=== PATIENT | male | born 1945 | race Caucasian/White ===

== ENCOUNTER 2018-08-30 13:15 | Inpatient (IN) ==
[2018-08-30 14:45] LABS: Baso % (Auto) 0.4 % (0.0-2.0); Eos % (Auto) 0.4 % (0.0-4.0); Hematocrit 48.8 % (39.0-51.0); Hemoglobin 16.3 gm/dL (13.0-17.0); Lymph # (Auto) 0.9 th/mm3 (1.0-4.8); Lymph % (Auto) 11.7 % (9.0-44.0); Mean Corpuscular HGB Conc 33.4 % (32.0-36.0); Mean Corpuscular Hemoglobin 32.2 pg (27.0-34.0); Mean Corpuscular Volume 96.6 fL (80.0-100.0); Mean Platelet Volume 7.8 fL (7.0-11.0); Mono # (Auto) 0.7 th/mm3 (0.0-0.9); Mono % (Auto) 8.1 % (0.0-8.0); Neut # (Auto) 6.4 th/mm3 (1.8-7.7); Neut % (Auto) 79.4 % (16.0-70.0); Platelet Count 244 th/mm3 (150-450); Red Blood Count 5.05 mil/mm3 (4.50-5.90); Red Cell Distribution Width 15.1 % (11.6-17.2); White Blood Count 8.1 th/mm3 (4.0-11.0)
--- NOTE | 2018-08-30 14:51 | ED ---
HPI General Chief complaint: Abdominal Pain Stated complaint: abd pain Time Seen by Provider: 08/30/18 14:13 Source: patient, family and RN notes reviewed Mode of arrival: ambulatory History of Present Illness HPI narrative: 73yM presenting with abdominal distension. The patient states that he's had abdominal "bloating" and diffuse pain for the past several weeks. He's been seen by his PMD and was sent for outpatient CT abd/ pelvis 4 days ago but does not know the results yet. He says that he feels like his abdomen needs to be drained but has never required paracentesis in the past. He was told that he had elevated liver enzymes but does not know if he has hepatitis or cirrhosis. Family history not significant for known liver disease, patient reports former alcohol use. He had an endoscopy/ colonoscopy performed by a GI in [facility] over a year ago but does not have a local GI. Related Data Home Medications Medication Instructions Recorded Confirmed amlodipine 10 mg PO DAILY 08/30/18 08/30/18 levothyroxine 25 mcg PO DAILY 08/30/18 08/30/18 lisinopril 20 mg PO DAILY 08/30/18 08/30/18 omeprazole 20 mg PO DAILY 08/30/18 08/30/18 pravastatin 40 mg PO DAILY 08/30/18 08/30/18 Allergies Allergy/AdvReac Type Severity Reaction Status Date / Time No Known Allergies Allergy Verified 08/30/18 14:07 Review of Systems ROS: all other systems reviewed are negative Constitutional Reports fever(s) Eyes Denies blurry vision Cardiovascular Denies chest pain Respiratory Denies cough Gastrointestinal Reports abdominal pain and Denies nausea Genitourinary Denies dysuria Neurologic Denies confusion Psychiatric Denies confusion PMFSH History History Provided By: Patient Medical History Medical History H/O endoscopy (Acute) Hypercholesteremia (Acute) Hypertension (Acute) Normal colonoscopy (Acute) Thyroid activity decreased (Acute) Surgical History Surgical History History of right knee joint replacement (Acute) Social History Social History Substance History: No History of Abuse Second Hand Smoke Exposure: No Smoking Status: Former smoker How Often Do You Have a Drink Containing Alcohol: 4 or more times a week Recent Travel in [facility] within the Last 8 Weeks: No Recent Out of Country Travel within the Last 8 Weeks: No Immunization History Tetanus Immunization: Unsure Hx Influenza Vaccine This Season: Yes Exam Const General: no acute distress HENMT Head: normocephalic and atraumatic Face and sinus: normal facial exam Eyes General: appearance normal, both eyes and all related structures Pupils: PERRL Other: No scleral icterus Chest Chest: normal inspection of the chest Resp Effort & Inspection: normal respiratory effort Auscultation: no rhonchi and no wheezes Cardio Rate: regular rate Rhythm: regular rhythm GI Other: Abdomen tense, moderately to severely distended, non-tender throughout, no guarding or rebound, no caput medusae Skin General: no rashes or lesions noted and no jaundice Neuro General: alert, awake, oriented x3 and no focal motor deficits Psych Affect: normal affect Procedures Paracentesis Time Out Performed: Yes Indication: Ascites Procedure: therapeutic paracentesis Location: RLQ Local anesthetic used: lidocaine 1% Amount of anesthesia used (mL): 10 Bed Used: yes, Ascites confirmed and location marked Preparation: sterile prep and drape Amount of fluid obtained (mL): 4,000 Fluid: clear and sent to lab for analysis Post Procedure Exam: awake, alert, normal BP, normal HR and normal SpO2 Patient Tolerated Procedure: well and no complications Course Initial Documented Vital Signs Temperature 97.8 F 08/30/18 13:39 Pulse Rate 105 H 08/30/18 13:39 Respiratory Rate 16 08/30/18 13:39 Blood Pressure 146/79 H 08/30/18 13:39 Pulse Oximetry 96 08/30/18 13:39 Last Documented Vital Signs Temperature 97.8 F 08/30/18 13:39 Pulse Rate 88 08/30/18 17:10 Respiratory Rate 12 08/30/18 17:10 Blood Pressure 147/83 H 08/30/18 17:10 Pulse Oximetry 96 08/30/18 17:10 Medical Decision Making [facility] Narrative Medical decision making narrative: Assessment: 73yM presenting with abdominal distension/ ascites Plan: EKG Labs, including coags, LFTs, CBC CXR Patient will need paracentesis for tense ascites Addendum: Patient's workup shows mildly elevated LFTs, no coagulopathy or thrombocytopenia, MINNA (creat 1.62, possibly related to intraabdominal HTN from tense ascites). I performed a bedside paracentesis and drained 4 L of ascitic fluid, will also give albumin bolus to follow. I informed the patient of the results of his outpatient CT scan, including concern for malignancy with possible mets. Case discussed with Dr. Last of , who will consult in the AM and recommends sending an coreen fetoprotein tumor marker and MRI abdomen. Patient will need further workup and consultation, discussed with Dr. Velazquez of [facility]. Medical Screen Exam Complete: Yes Emergency Medical Condition: Yes Differential Diagnosis Differential Diagnosis: Differential diagnosis includes, but is not limited to: ascites, cirrhosis/ liver failure, hepatorenal syndrome, coagulopathy, thrombocytopenia, mass Medical Records Medical records reviewed: Yes I reviewed the patient's medical records. CT abd/pelvis performed at [facility] on 08/26/2018: CONCLUSION: Findings of cirrhosis with severe ascites and possible mass in the dome of the liver. Malignancy is not excluded. MRI is recommended for further evaluation if clinically indicated. Multiple nodules in lung bases suspicious for metastatic disease. CT scan is recommended if clinically indicated. Possible mass in the in the L1 vertebral body. This can also be evaluated by MRI. Lab Data Lab results reviewed: Yes I reviewed the patient's lab results. Result diagrams: 08/30/18 14:30 08/30/18 14:30 Lab Results 08/30/18 08/30/18 08/30/18 Range/Units 14:30 14:30 14:30 WBC 8.1 (4.0-11.0) th/mm3 RBC 5.05 (4.50-5.90) mil/mm3 Hgb 16.3 (13.0-17.0) gm/dL Hct 48.8 (39.0-51.0) % MCV 96.6 (80.0-100.0) fL MCH 32.2 (27.0-34.0) pg MCHC 33.4 (32.0-36.0) % RDW 15.1 (11.6-17.2) % Plt Count 244 (150-450) th/mm3 MPV 7.8 (7.0-11.0) fL Neut % (Auto) 79.4 H (16.0-70.0) % Lymph % (Auto) 11.7 (9.0-44.0) % [place] % (Auto) 8.1 H (0.0-8.0) % Eos % (Auto) 0.4 (0.0-4.0) % Baso % (Auto) 0.4 (0.0-2.0) % Neut # (Auto) 6.4 (1.8-7.7) th/mm3 Lymph # (Auto) 0.9 L (1.0-4.8) th/mm3 [place] # (Auto) 0.7 (0.0-0.9) th/mm3 Eos # (Auto) 0.0 (0.0-0.4) th/mm3 Baso # (Auto) 0.0 (0.0-0.2) th/mm3 WBC Differential . Differential Comment Auto diff final PT 11.9 H (9.8-11.6) sec INR 1.2 Ratio APTT 32.8 H (24.3-30.1) sec Sodium 132 L (136-145) meq/L Potassium 4.4 (3.5-5.1) meq/L Chloride 99 (98-107) meq/L Carbon Dioxide 22.2 (21.0-32.0) meq/L Anion Gap 11 (5-15) meq/L BUN 41 H (7-18) mg/dL Creatinine 1.62 H (0.60-1.30) mg/dL Estimated GFR 42 L (>89) mL/min Random Glucose 116 H (74-106) mg/dL Calcium 10.0 (8.5-10.1) mg/dL Total Bilirubin 1.8 H (0.2-1.0) mg/dL AST 264 H (15-37) U/L ALT 83 H (12-78) U/L Alkaline Phosphatase 485 H (45-117) U/L Ammonia (11-32) mcmol/L Total Protein 7.8 (6.4-8.2) g/dL Albumin 3.2 L (3.4-5.0) g/dL Lipase 273 (73-393) U/L Blood Type Antibody Screen 08/30/18 08/30/18 Range/Units 14:30 14:30 WBC (4.0-11.0) th/mm3 RBC (4.50-5.90) mil/mm3 Hgb (13.0-17.0) gm/dL Hct (39.0-51.0) % MCV (80.0-100.0) fL MCH (27.0-34.0) pg MCHC (32.0-36.0) % RDW (11.6-17.2) % Plt Count (150-450) th/mm3 MPV (7.0-11.0) fL Neut % (Auto) (16.0-70.0) % Lymph % (Auto) (9.0-44.0) % [place] % (Auto) (0.0-8.0) % Eos % (Auto) (0.0-4.0) % Baso % (Auto) (0.0-2.0) % Neut # (Auto) (1.8-7.7) th/mm3 Lymph # (Auto) (1.0-4.8) th/mm3 [place] # (Auto) (0.0-0.9) th/mm3 Eos # (Auto) (0.0-0.4) th/mm3 Baso # (Auto) (0.0-0.2) th/mm3 WBC Differential Differential Comment PT (9.8-11.6) sec INR Ratio APTT (24.3-30.1) sec Sodium (136-145) meq/L Potassium (3.5-5.1) meq/L Chloride (98-107) meq/L Carbon Dioxide (21.0-32.0) meq/L Anion Gap (5-15) meq/L BUN (7-18) mg/dL Creatinine (0.60-1.30) mg/dL Estimated GFR (>89) mL/min Random Glucose (74-106) mg/dL Calcium (8.5-10.1) mg/dL Total Bilirubin (0.2-1.0) mg/dL AST (15-37) U/L ALT (12-78) U/L Alkaline Phosphatase (45-117) U/L Ammonia Less than 10 L (11-32) mcmol/L Total Protein (6.4-8.2) g/dL Albumin (3.4-5.0) g/dL Lipase (73-393) U/L Blood Type A Positive Antibody Screen Negative Imaging Data Radiologist's impression: Chest X-Ray 08/30/18 14:23 CONCLUSION: No acute cardiopulmonary findings. ECG Data Attestation: I personally reviewed and interpreted this ECG as follows: Interpretation: Rate: 95 BPM Rhythm: Sinus [place]: Normal Intervals: Normal intervals, no blocks, QTc 400 ms Q waves: None T waves: Upright, no inversions ST segments: No elevations or depressions Impression: Non-specific EKG, no previous EKG available for comparison. Discharge Plan Discharge Disposition Patient Disposition: 30 Still Patient Discharge Condition Condition: Stable Discharge Details Diagnosis: Ascites, Liver mass, Acute kidney injury Physicians Team ED Provider: Bonnie Aguilar Primary Care Provider: Lynn Goff Other Providers: Evaristo Last Rxs /Orders / Referrals /Forms Prescriptions: No Action pravastatin 40 mg Tablet 40 mg PO DAILY RF: 0 lisinopril 20 mg Tablet 20 mg PO DAILY RF: 0 levothyroxine 25 mcg Tablet 25 mcg PO DAILY RF: 0 amlodipine 10 mg Tablet 10 mg PO DAILY RF: 0 omeprazole 20 mg Capsule,Delayed Release(Dr/Ec) 20 mg PO DAILY RF: 0 Discharge Interventions Interventions: Vital Signs Last Done: 08/30/18 17:10 Status ED Status: With Doctor
[2018-08-30 14:58] LABS: Activated Partial Thrombo Time 32.8 sec (24.3-30.1); INR 1.2 Ratio; Prothrombin Time 11.9 sec (9.8-11.6)
[2018-08-30 15:06] LABS: Alanine Aminotransferase 83 U/L (12-78); Albumin 3.2 g/dL (3.4-5.0); Anion Gap 11 meq/L (5-15); Aspartate Aminotransferase 264 U/L (15-37); Blood Urea Nitrogen 41 mg/dL (7-18); Carbon Dioxide 22.2 meq/L (21.0-32.0); Chloride 99 meq/L (98-107); Glomerular Filtration Rate 42 mL/min (>89); Glucose,Random 116 mg/dL (74-106); Lipase 273 U/L (73-393); Potassium 4.4 meq/L (3.5-5.1); Sodium 132 meq/L (136-145)
[2018-08-30 15:09] LABS: Alkaline Phosphatase 485 U/L (45-117); Total Protein 7.8 g/dL (6.4-8.2)
--- NOTE | 2018-08-30 15:22 | XR ---
EXAM DATE: 08/30/2018 2:23 PM EDT AGE/SEX: 73 years / Male INDICATIONS: Atelectasis. Abdomen pain and swelling for 3 weeks. No chest pain. Abdomen pain 6/10. CLINICAL DATA: This is the patient's initial encounter. Patient reports that signs and symptoms have been present for 3 weeks and indicates a pain score of 0/10. MEDICAL/SURGICAL HISTORY: None. None. COMPARISON: No prior exams available for comparison. FINDINGS: The heart is normal in size. The lungs are clear. The visualized bony structures are grossly intact. CONCLUSION: No acute cardiopulmonary findings. Electronically signed by: Hardeep Posey MD 08/30/2018 3:20 PM EDT
[2018-08-30] MEDS ORDERED: Lidocaine PF 1% Inj 10 ML Amp INFILTRATN ONE (16:28)
[2018-08-30] MEDS ORDERED: Albumin Human 5% Inj 500 ML IV.SIG ONE (17:03)
[2018-08-30] MEDS ORDERED: Bisacodyl 10 MG Supp RECTAL PRN (17:55)
[2018-08-30] MEDS ORDERED: Sod Chloride 0.9% Inj 1,000 ML IV.CONT SCH (18:00)
[2018-08-30 18:24] LABS: Total Protein,Peritoneal Fluid 0.4 gm/dL
--- NOTE | 2018-08-30 18:36 | P.HP ---
History of Present Illness Service: Hospitalist Primary Care Physician: Lynn Goff MD Chief Complaint: Abdominal distention History of Present Illness: Patient is a 73-year-old male who has a past medical history of hypertension, hyperlipidemia, BPH, hypothyroidism and liver disease. He presents to the emergency room with a complaint of abdominal distention. His history is somewhat vague however he does say that he has recently seen an oncologist, Dr. Garcia, who did a CT last week in order to evaluate his liver for a possible lesion and cirrhosis. Patient also reports that he was told his blood work was showing high calcium and liver problems. He does endorse significant EtOH use in the past. He quit smoking in his 30s. Denies any history of liver disease such as hepatitis or any previous paracentesis. He does report having had an EGD and colonoscopy however it is unclear exactly when this was done. - Diagnosis (1) Weakness (2) Ascites (3) Liver mass (4) Acute kidney injury Review of Systems All other systems reviewed negative except as stated in HPI [facility] - History History Provided By: Patient, Medical Record - Medical History Medical History: Medical History (Last Reviewed 08/30/18 @ 18:04 by MELVIN Velasquez) BPH (benign prostatic hyperplasia) H/O endoscopy Hypercholesteremia Hypertension Normal colonoscopy Thyroid activity decreased - Surgical History Surgical History: Surgical History (Last Reviewed 08/30/18 @ 18:04 by MELVIN Velasquez) H/O hemorrhoidectomy History of right knee joint replacement - Family History Family History: Family History (Last Reviewed 08/30/18 @ 18:04 by MELVIN Velasquez) Other Family history non-contributory - Social History I have reviewed the patient's Social History: Yes - Tobacco History Second Hand Smoke Exposure: No Tobacco Use In Past 30 Days: No Smoking Status: Former smoker - Alcohol History How Often Do You Have a Drink Containing Alcohol: 4 or more times a week - Substance Use History Substance History: No History of Abuse - Travel History Recent Travel in the [place] Within the Last 8 Weeks: No Recent Travel Out of the Country Within the Last 8 Weeks: No - Immunization History Tetanus Immunization: Unsure Hx Influenza Vaccine This Season: Yes Medications and Allergies Active Medications: Active Medications Al Hydroxide/Mg Hydroxide (Milk Of Magnesia Liq) 30 ml PO Q12H PRN PRN Reason: Mild Constipation Bisacodyl (Dulcolax Supp) 10 mg RECTAL DAILY PRN PRN Reason: SEVERE CONSITIPATION Albumin Human (Alburx 5% Inj) 500 mls @ 250 mls/hr IV.SIG ONCE ONE Stop: 08/30/18 19:02 Last Admin: 08/30/18 17:52 Dose: 250 mls/hr Sodium Chloride (Ns Inj) 1,000 mls @ 50 mls/hr IV.CONT .Q20H ASHWINI Stop: 08/31/18 13:59 Lactulose (Lactulose Liq) 30 ml PO DAILY PRN PRN Reason: SEVERE CONSITIPATION Ondansetron HCl (Zofran Inj) 4 mg IV.PUSH Q6H PRN PRN Reason: NAUSEA OR VOMITING Senna/Docusate Sodium (Migdalia-Colace) 1 tab PO BID ASHWINI Sennosides (Senokot) 17.2 mg PO Q12H PRN PRN Reason: Moderate Constipation Sodium Chloride (Ns Flush) 2 ml IV.FLUSH PRN PRN PRN Reason: FLUSH AFTER USING IV ACCESS Allergies Allergy/AdvReac Type Severity Reaction Status Date / Time No Known Allergies Allergy Verified 08/30/18 14:07 Home Medications Medication Instructions Recorded Confirmed Type amlodipine 10 mg PO DAILY 08/30/18 08/30/18 History levothyroxine 25 mcg PO DAILY 08/30/18 08/30/18 History lisinopril 20 mg PO DAILY 08/30/18 08/30/18 History omeprazole 20 mg PO DAILY 08/30/18 08/30/18 History pravastatin 40 mg PO DAILY 08/30/18 08/30/18 History Exam Vital signs: Vital Signs 08/30/18 13:39 08/30/18 13:52 08/30/18 16:45 Temperature 97.8 F Pulse Rate 105 H 95 H 90 Respiratory Rate 16 20 12 Blood Pressure 146/79 H 116/56 L 153/90 H Pulse Oximetry 96 94 L 90 L 08/30/18 17:10 08/30/18 17:51 Temperature Pulse Rate 88 82 Respiratory Rate 12 12 Blood Pressure 147/83 H 141/69 H Pulse Oximetry 96 Intake & Output 08/29/18 08/30/18 08/30/18 18:59 06:59 18:59 Weight 68.039 kg Other: Date of Last Bowel Movement 08/30/18 Narrative: GENERAL: Well-nourished, well-developed adult male in no obvious distress. SKIN: Warm and dry. HEAD: Atraumatic. Normocephalic. CARDIOVASCULAR: Regular rate and rhythm. RESPIRATORY: No accessory muscle use. Clear to auscultation. Breath sounds equal bilaterally. GASTROINTESTINAL: Abdomen soft, non-tender, quite distended. Positive bowel sounds. MUSCULOSKELETAL: Extremities without clubbing, cyanosis, or edema. No obvious deformities. Generalized muscle loss. NEUROLOGICAL: Awake and alert. No obvious cranial nerve deficits. Motor grossly within normal limits. Normal speech. PSYCHIATRIC: Appropriate mood and affect; insight and judgment good. Results - Labs CBC & Chem 7: 08/30/18 14:30 08/30/18 14:30 Labs: Laboratory Results - last 24 hr 08/30/18 08/30/18 08/30/18 14:30 14:30 14:30 WBC 8.1 RBC 5.05 Hgb 16.3 Hct 48.8 MCV 96.6 MCH 32.2 MCHC 33.4 RDW 15.1 Plt Count 244 MPV 7.8 Neut % (Auto) 79.4 H Lymph % (Auto) 11.7 [place] % (Auto) 8.1 H Eos % (Auto) 0.4 Baso % (Auto) 0.4 Neut # (Auto) 6.4 Lymph # (Auto) 0.9 L [place] # (Auto) 0.7 Eos # (Auto) 0.0 Baso # (Auto) 0.0 WBC Differential . Differential Comment Auto diff final PT 11.9 H INR 1.2 APTT 32.8 H Sodium 132 L Potassium 4.4 Chloride 99 Carbon Dioxide 22.2 Anion Gap 11 BUN 41 H Creatinine 1.62 H Estimated GFR 42 L Random Glucose 116 H Calcium 10.0 Total Bilirubin 1.8 H AST 264 H ALT 83 H Alkaline Phosphatase 485 H Ammonia Total Protein 7.8 Albumin 3.2 L Lipase 273 Blood Type Antibody Screen 08/30/18 08/30/18 14:30 14:30 WBC RBC Hgb Hct MCV MCH MCHC RDW Plt Count MPV Neut % (Auto) Lymph % (Auto) [place] % (Auto) Eos % (Auto) Baso % (Auto) Neut # (Auto) Lymph # (Auto) [place] # (Auto) Eos # (Auto) Baso # (Auto) WBC Differential Differential Comment PT INR APTT Sodium Potassium Chloride Carbon Dioxide Anion Gap BUN Creatinine Estimated GFR Random Glucose Calcium Total Bilirubin AST ALT Alkaline Phosphatase Ammonia Less than 10 L Total Protein Albumin Lipase Blood Type A Positive Antibody Screen Negative - Imaging Impressions Chest X-Ray 08/30/18 14:23 CONCLUSION: No acute cardiopulmonary findings. Caprini VTE Risk Assessment Caprini VTE Risk Assessment: No/Low Risk (score <= 1) Caprini Risk Assessment Model: Point Value = 1 Point Value = 2 Point Value = 3 Point Value = 5 Age 41-60 Minor surgery BMI > 25 kg/m2 Swollen legs Varicose veins or History of unexplained or recurrent spontaneous Oral contraceptives or hormone replacement Sepsis (< 1 month) Serious lung disease, including pneumonia (< 1 month) Abnormal pulmonary function Acute myocardial infarction Congestive heart failure (< 1 month) History of inflammatory bowel disease Medical patient at bed rest Age 61-74 Arthroscopic surgery Major open surgery (> 45 min) Laparoscopic surgery (> 45 min) Malignancy Confined to bed (> 72 hours) Immobilizing plaster cast Central venous access Age >= 75 History of VTE Family history of VTE Factor V Leiden Prothrombin [id number] Lupus anticoagulant Anticardiolipin antibodies Elevated serum homocysteine Heparin-induced thrombocytopenia Other congenital or acquired thrombophilia Stroke (< 1 month) Elective arthroplasty Hip, pelvis, or leg fracture Acute spinal cord injury (< 1 month) Prophylaxis Regimen: Total Risk Factor Score Risk Level Prophylaxis Regimen 0-1 Low Early ambulation 2 Moderate Order ONE of the following: *Sequential Compression Device (SCD) *Heparin 5000 units SQ BID 3-4 Higher Order ONE of the following medications: *Heparin 5000 units SQ TID *Enoxaparin/Lovenox 40 mg SQ daily (WT < 150 kg, CrCl > 30 mL/min) *Enoxaparin/Lovenox 30 mg SQ daily (WT < 150 kg, CrCl > 10-29 mL/min) *Enoxaparin/Lovenox 30 mg SQ BID (WT < 150 kg, CrCl > 30 mL/min) AND/OR *Sequential Compression Device (SCD) 5 or more Highest Order ONE of the following medications: *Heparin 5000 units SQ TID (Preferred with Epidurals) *Enoxaparin/Lovenox 40 mg SQ daily (WT < 150 kg, CrCl > 30 mL/min) *Enoxaparin/Lovenox 30 mg SQ daily (WT < 150 kg, CrCl > 10-29 mL/min) *Enoxaparin/Lovenox 30 mg SQ BID (WT < 150 kg, CrCl > 30 mL/min) AND *Sequential Compression Device (SCD) Assessment and Plan - Assessment (1) Weakness Code(s): R53.1 - Weakness Status: Acute (2) Ascites Code(s): R18.8 - Other ascites Status: Acute (3) Liver mass Code(s): R16.0 - Hepatomegaly, not elsewhere classified Status: Acute (4) Acute kidney injury Code(s): N17.9 - Acute kidney failure, unspecified Status: Acute - Plan Patient is a 73-year-old male who has a past medical history of hypertension, hyperlipidemia, BPH, hypothyroidism and liver disease. He presents to the emergency room with a complaint of abdominal distention. Per emergency room physician -outpatient CT AB pelvis done 4 days ago indicated possible mass in the dome of the liver for which malignancy could not be excluded. There was also nodules in the lung bases suspicious for metastatic disease as well as a possible mass in the L1 vertebral body.. Ascites -Paracentesis done in the ED -4 L removed -Hold off on starting spironolactone/Lasix until kidney function has improved -GI consulted Suspected liver CA with possible metastases -MRI ordered for additional evaluation -Dr. Garcia is outpatient oncologist Acute kidney injury -Gentle IVF hydration -Monitor labs -Hold lisinopril Weakness -Debilitated due to liver disease and chronic EtOH use -PT ordered Hypertension; chronic -Restart patient Norvasc -Hold lisinopril due to MINNA Hypothyroid; chronic -Restart patient levothyroxine Hyperlipidemia; chronic -Hold simvastatin due to muscle weakness and until liver evaluation is complete DVT prophylaxis: SCDs.
[2018-08-30 18:43] LABS: Bacteria,Urine Occasional /hpf; Bilirubin,Urine Negative (Negative); Clarity,Urine Hazy (Clear); Color,Urine Amber (Yellw/Straw); Glucose,Urine (UA) Negative (Negative); Hyaline Casts,Urine 19 /lpf (0-3); Leukocyte Esterase,Urine Trace (Negative); Mucus,Urine Few /lpf (Occasional); Nitrite,Urine Negative (Negative); Specific Gravity,Urine 1.025 (1.002-1.035); Squamous Epithelial Cell,Urine <1 /hpf (0-5)
[2018-08-30 18:52] LABS: Basophils,Peritoneal Fluid 1 %; Mesothelial,Peritoneal Fluid 2 %; Neutrophils,Peritoneal Fluid 37 %; RBC,Peritoneal Fluid 359 /mm3 (0-0)
--- NOTE | 2018-08-30 21:11 | MR ---
EXAM DATE: 08/30/2018 8:05 PM EDT AGE/SEX: 73 years / Male INDICATIONS: Abnormal abdomen CT demonstrating low-attenuation areas in the dome of the liver of conc brenda for possible mass. Multiple nodules in the lung bases seen on CT of concern for metastatic diseas e. A small mass in the L1 vertebral body. Ascites and cirrhosis. A small right pleural effusion is in cidentally noted. CLINICAL DATA: This is the patient's initial encounter. Patient reports that signs and symptoms have been present for 1 day and indicates a pain score of 0/10. MEDICAL/SURGICAL HISTORY: Hypertension. . Right knee replacement. COMPARISON: POI, CT ABDOMEN AND PELVIS W AND W/O CONTRAST, 08/26/2018. . TECHNIQUE: Multiplanar, multisequence images of the abdomen was performed without contrast. FINDINGS: Liver: The liver is again noted to be small and cirrhotic in appearance with subtle areas of abnormal signal noted in the dome of the liver which are nonmasslike in appearance on this this noncontrast s tudy. There is mild heterogeneity and no intrahepatic ductal dilatation. There is evidence of portal venous thrombosis with abnormal signal in the central portal vein. Gallbladder: No gallstones seen. Spleen: The spleen is unremarkable. Pancreas: The pancreas is unremarkable. Adrenals: The adrenal glands appear normal. Kidneys: Both kidneys appear normal with symmetric nephrograms and no focal parenchymal abnormalities . There is no hydronephrosis on either side. Retroperitoneum: The aorta is unremarkable. There is no pathologic abdominal lymphadenopathy. High signal mass in the right side of the L1 vertebral body on the T2-weighted coronal images. Please see lumbar spine MRI for further evaluation. CONCLUSION: 1. Evidence of central portal venous thrombosis. 2. Noncontrast examination demonstrating a cirrhotic liver with inhomogeneity and abnormal signal in tensity in the right lobe corresponding to the areas of low density seen on CT. The finding is nonspe cific but may be related to the portal venous thrombosis. A contrast-enhanced study would have increa sed sensitivity to exclude the possibility of a true mass. 3. Moderate amount of ascitic fluid. 4. Small right pleural effusion. 5. High signal mass in the right-sided the L1 body on the T2-weighted images. Please see lumbar spin e MRI for further evaluation. Electronically signed by: Trey Campbell MD 08/30/2018 9:10 PM EDT
--- NOTE | 2018-08-30 21:20 | MR ---
EXAM DATE: 08/30/2018 8:05 PM EDT AGE/SEX: 73 years / Male INDICATIONS: Abnormal abdomen CT demonstrating a focal mass in the L1 vertebral body. Low back pain. Also had multiple pulmonary masses. CLINICAL DATA: This is the patient's initial encounter. Patient reports that signs and symptoms have been present for 1 day and indicates a pain score of 4/10. MEDICAL/SURGICAL HISTORY: Hypertension. Total knee replacement, right. COMPARISON: No prior exams available for comparison. TECHNIQUE: Multiplanar, multisequence MRI of the lumbar spine was performed without contrast. Patie nt was scanned in a sitting position; neutral, flexion, and extension scans were performed in the sa gittal plane. FINDINGS: Vertebra: The vertebral bodies are intact with fairly homogeneous signal except for a focal mass in the right side of the L1 vertebral body measuring up to 2.5 cm in diameter. This demonstrates high si gnal on the T2-weighted images and low signal on the T1-weighted images. It is a second high signal m ass noted in the right ilium on axial image #21.. Normal alignment. Discs: There is disc desiccation. There are small anterior extradural defects noted on the sagittal i mages greatest at the L4-5 and L5-S1 levels. Conus: Normal level and configuration. T12-L1: The thecal sac has a normal diameter. No evidence of disc bulge or protrusion. The neural foramina are patent bilaterally. High signal mass is again noted in the right side of the L1 vertebra l body. L1-L2: There is a mild annular disc bulge with mild flattening of the anterior thecal sac and no fo shanice protrusion. The neural foramina are patent. L2-L3: There is a mild annular disc bulge with mild flattening of the anterior thecal sac and no fo shanice protrusion. The neural foramina are patent. L3-L4: There is a mild annular disc bulge with mild flattening of the anterior thecal sac and no fo shanice protrusion. The neural foramina are patent. There are mild degenerative change involving the face t joints. L4-L5: There is a mild annular disc bulge with mild flattening of the anterior thecal sac and no fo shanice protrusion. The neural foramina are patent. There are mild degenerative change involving the face t joints. There is a subtle high signal mass in the left side of the L4 vertebral body measuring 6 to 7 mm. L5-S1: Mild annular disc bulge with no mass effect on the thecal sac. The neural foramina are paten t. There are degenerative changes involving the facet joints. CONCLUSION: 1. 2.5 cm mass in the right side of the L1 vertebral body with high signal on the T2-weighted images and subtle decreased signal on the T1-weighted images. There is a smaller 8 to 9 mm similar appearin g mass in the right side of the ileum. There is a third subtle high signal mass also noted in the L4 vertebral body. Findings are nonspecific but of concern for marrow replacing process such as a metast asis or myeloma. 2. Mild degenerative disc changes with disc bulges and no focal protrusion. Electronically signed by: Trey Campbell MD 08/30/2018 9:19 PM EDT
[2018-08-30] MEDS: Senna/Docusate Sodium 8.6/50 MG Tablet PO SCH (22:00)
[2018-08-31 07:12] LABS: Alanine Aminotransferase 57 U/L (12-78); Albumin 2.8 g/dL (3.4-5.0); Alkaline Phosphatase 340 U/L (45-117); Anion Gap 11 meq/L (5-15); Aspartate Aminotransferase 216 U/L (15-37); Blood Urea Nitrogen 40 mg/dL (7-18); Calcium 9.3 mg/dL (8.5-10.1); Carbon Dioxide 18.4 meq/L (21.0-32.0); Chloride 101 meq/L (98-107); Creatine Kinase 137 U/L (39-308); Glomerular Filtration Rate 58 mL/min (>89); Glucose,Random 78 mg/dL (74-106); Potassium 5.7 meq/L (3.5-5.1); Sodium 130 meq/L (136-145); Total Protein 6.6 g/dL (6.4-8.2)
[2018-08-31] MEDS ORDERED: Sodium Polystyrene Sulfonate/Sorbitol Liq 15 GM/60 ML UDC PO ONE (08:00)
[2018-08-31] MEDS ORDERED: amLODIPine 10 MG Tablet PO SCH (09:00)
[2018-08-31] MEDS: Pantoprazole Sodium 20 MG DR Tablet PO SCH (09:31)
[2018-08-31] MEDS: Senna/Docusate Sodium 8.6/50 MG Tablet PO SCH ×2 (09:32→21:07)
--- NOTE | 2018-08-31 11:07 | P.PNIM ---
Subjective Interval history: Follow-up ascites, liver mass, MINNA. Pt sitting in the bed, just came back from therapy activity. Patient denies any abdominal pain, nausea or vomiting. Patient complaints of being hungry , wants water and food. Explained the need to be NPO for GI procedure today. Patient stated ascites started 2-3 weeks ago. Also confirmed he had stopped drinking recently. Patient denies any headache, dizziness, denies any chest pain or shortness of breath, denies any diarrhea or constipation. Patient denies any fever or chills. Physical Exam Vital signs: Vital Signs 08/30/18 13:39 08/30/18 13:52 08/30/18 16:45 Temperature 97.8 F Pulse Rate 105 H 95 H 90 Respiratory Rate 16 20 12 Blood Pressure 146/79 H 116/56 L 153/90 H Pulse Oximetry 96 94 L 90 L 08/30/18 17:10 08/30/18 17:51 08/30/18 18:00 Temperature Pulse Rate 88 82 73 Respiratory Rate 12 12 12 Blood Pressure 147/83 H 141/69 H 151/79 H Pulse Oximetry 96 95 08/30/18 20:00 08/31/18 00:00 08/31/18 04:00 Temperature 97.4 F L 99 F 98 F Pulse Rate 69 70 75 Respiratory Rate 15 18 17 Blood Pressure 139/69 132/70 150/82 H Pulse Oximetry 95 97 94 L 08/31/18 08:00 Temperature 98.0 F Pulse Rate 65 Respiratory Rate 18 Blood Pressure 134/86 Pulse Oximetry 93 L Intake & Output 08/30/18 08/31/18 08/31/18 18:59 06:59 18:59 Intake Total 500 / 500 Balance 500 / 500 Weight 68.039 kg 84.7 kg Intake: IV 500 / 500 Alburx 5% Inj 500 ML @ 250 mls/ 500 / 500 hr IV.SIG ONCE ONE Rx#:[id number] Other: # Voids 3 Date of Last Bowel Movement 08/30/18 08/31/18 # Bowel Movements 2 Weight On Admission 84.7 kg Narrative: GENERAL: Well-developed, well-nourished, alert and oriented x3, with no apparent distress SKIN: Warm and dry. HEAD: Atraumatic. Normocephalic. EYES: Pupils equal and round. No scleral icterus. No injection or drainage. ENT: No nasal bleeding or discharge. Mucous membranes pink and moist. NECK: Trachea midline. No JVD. CARDIOVASCULAR: Regular rate and rhythm. RESPIRATORY: No accessory muscle use. Clear to auscultation. Breath sounds equal bilaterally. GASTROINTESTINAL: Abdomen distended, non-tender. Bowel sounds present in all 4 quadrants. MUSCULOSKELETAL: Extremities without clubbing, cyanosis, or edema. No obvious deformities. NEUROLOGICAL: Awake and alert. No obvious cranial nerve deficits. Motor grossly within normal limits. Five out of 5 muscle strength in the arms and legs. Normal speech. PSYCHIATRIC: Appropriate mood and affect; insight and judgment normal. Results - Labs CBC & Chem 7: 08/30/18 14:30 08/31/18 05:00 Laboratory Results - last 24 hr 08/30/18 08/30/18 08/30/18 14:30 14:30 14:30 WBC 8.1 RBC 5.05 Hgb 16.3 Hct 48.8 MCV 96.6 MCH 32.2 MCHC 33.4 RDW 15.1 Plt Count 244 MPV 7.8 Neut % (Auto) 79.4 H Lymph % (Auto) 11.7 Hamlin % (Auto) 8.1 H Eos % (Auto) 0.4 Baso % (Auto) 0.4 Neut # (Auto) 6.4 Lymph # (Auto) 0.9 L [place]lin # (Auto) 0.7 Eos # (Auto) 0.0 Baso # (Auto) 0.0 WBC Differential . Differential Comment Auto diff final PT 11.9 H INR 1.2 APTT 32.8 H Sodium 132 L Potassium 4.4 Chloride 99 Carbon Dioxide 22.2 Anion Gap 11 BUN 41 H Creatinine 1.62 H Estimated GFR 42 L Random Glucose 116 H Calcium 10.0 Total Bilirubin 1.8 H AST 264 H ALT 83 H Alkaline Phosphatase 485 H Ammonia Total Creatine Kinase Total Protein 7.8 Albumin 3.2 L Lipase 273 Tumor Marker AFP Urine Color Urine Clarity Urine pH Ur Specific [place] Urine Protein Urine Glucose (UA) Urine Ketones Urine Occult Blood Urine Nitrate Urine Bilirubin Urine Urobilinogen Ur Leukocyte Esterase Urine RBC Urine WBC Ur Squamous Epith Cells Urine Bacteria Hyaline Casts Urine Mucus Micro UA Comment Ur Microscopic Review Urine Culture Comments Peritoneal RBC Periton Nuc Cells Periton Neutrophils Periton Lymphocytes Peritoneal Monocytes Peritoneal Basophils Periton Mesothelial Periton Histiocytes Peritoneal Tot Protein Peritoneal Albumin Peritoneal LDH Peritoneal Glucose Peritoneal Amylase Blood Type Antibody Screen 08/30/18 08/30/18 08/30/18 14:30 14:30 17:15 WBC RBC Hgb Hct MCV MCH MCHC RDW Plt Count MPV Neut % (Auto) Lymph % (Auto) Hamlin % (Auto) Eos % (Auto) Baso % (Auto) Neut # (Auto) Lymph # (Auto) Hamlin # (Auto) Eos # (Auto) Baso # (Auto) WBC Differential Differential Comment PT INR APTT Sodium Potassium Chloride Carbon Dioxide Anion Gap BUN Creatinine Estimated GFR Random Glucose Calcium Total Bilirubin AST ALT Alkaline Phosphatase Ammonia Less than 10 L Total Creatine Kinase Total Protein Albumin Lipase Tumor Marker AFP Urine Color Urine Clarity Urine pH Ur Specific [place] Urine Protein Urine Glucose (UA) Urine Ketones Urine Occult Blood Urine Nitrate Urine Bilirubin Urine Urobilinogen Ur Leukocyte Esterase Urine RBC Urine WBC Ur Squamous Epith Cells Urine Bacteria Hyaline Casts Urine Mucus Micro UA Comment Ur Microscopic Review Urine Culture Comments Peritoneal RBC Periton Nuc Cells Periton Neutrophils Periton Lymphocytes Peritoneal Monocytes Peritoneal Basophils Periton Mesothelial Periton Histiocytes Peritoneal Tot Protein 0.4 Peritoneal Albumin 0.2 Peritoneal LDH 30 Peritoneal Glucose 114 Peritoneal Amylase 7 Blood Type A Positive Antibody Screen Negative 08/30/18 08/30/18 08/30/18 17:15 17:37 18:10 WBC RBC Hgb Hct MCV MCH MCHC RDW Plt Count MPV Neut % (Auto) Lymph % (Auto) [place] % (Auto) Eos % (Auto) Baso % (Auto) Neut # (Auto) Lymph # (Auto) Hamlin # (Auto) Eos # (Auto) Baso # (Auto) WBC Differential Differential Comment PT INR APTT Sodium Potassium Chloride Carbon Dioxide Anion Gap BUN Creatinine Estimated GFR Random Glucose Calcium Total Bilirubin AST ALT Alkaline Phosphatase Ammonia Total Creatine Kinase Total Protein Albumin Lipase Tumor Marker AFP 3906.2 H Urine Color Ila Urine Clarity Hazy H Urine pH 5.0 Ur Specific [place] 1.025 Urine Protein 30 H Urine Glucose (UA) Negative Urine Ketones Negative Urine Occult Blood Small H Urine Nitrate Negative Urine Bilirubin Negative Urine Urobilinogen Less than 2 Ur Leukocyte Esterase Trace H Urine RBC 2 Urine WBC 8 H Ur Squamous Epith Cells <1 Urine Bacteria Occasional H Hyaline Casts 19 Urine Mucus Few H Micro UA Comment Culture not ind Ur Microscopic Review Not Reportable Urine Culture Comments Culture not ind Peritoneal RBC 359 H Periton Nuc Cells 147 H [place] Neutrophils 37 [place] Lymphocytes 50 Peritoneal Monocytes 9 Peritoneal Basophils 1 [place] Mesothelial 2 Periton Histiocytes 1 Peritoneal Tot Protein Peritoneal Albumin Peritoneal LDH Peritoneal Glucose Peritoneal Amylase Blood Type Antibody Screen 08/31/18 05:00 WBC RBC Hgb Hct MCV MCH MCHC RDW Plt Count MPV Neut % (Auto) Lymph % (Auto) [place]lin % (Auto) Eos % (Auto) Baso % (Auto) Neut # (Auto) Lymph # (Auto) [place]lin # (Auto) Eos # (Auto) Baso # (Auto) WBC Differential Differential Comment PT INR APTT Sodium 130 L Potassium 5.7 H D Chloride 101 Carbon Dioxide 18.4 L Anion Gap 11 BUN 40 H Creatinine 1.21 Estimated GFR 58 L Random Glucose 78 Calcium 9.3 Total Bilirubin 2.1 H AST 216 H ALT 57 Alkaline Phosphatase 340 H Ammonia Total Creatine Kinase 137 Total Protein 6.6 D Albumin 2.8 L Lipase Tumor Marker AFP Urine Color Urine Clarity Urine pH Ur Specific [place] Urine Protein Urine Glucose (UA) Urine Ketones Urine Occult Blood Urine Nitrate Urine Bilirubin Urine Urobilinogen Ur Leukocyte Esterase Urine RBC Urine WBC Ur Squamous Epith Cells Urine Bacteria Hyaline Casts Urine Mucus Micro UA Comment Ur Microscopic Review Urine Culture Comments Peritoneal RBC Periton Nuc Cells Periton Neutrophils Periton Lymphocytes Peritoneal Monocytes Peritoneal Basophils Periton Mesothelial Periton Histiocytes Peritoneal Tot Protein Peritoneal Albumin Peritoneal LDH Peritoneal Glucose Peritoneal Amylase Blood Type Antibody Screen - Imaging Impressions Abdomen MRI 08/30/18 00:00 CONCLUSION: 1. Evidence of central portal venous thrombosis. 2. Noncontrast examination demonstrating a cirrhotic liver with inhomogeneity and abnormal signal intensity in the right lobe corresponding to the areas of low density seen on CT. The finding is nonspecific but may be related to the portal venous thrombosis. A contrast-enhanced study would have increased sensitivity to exclude the possibility of a true mass. 3. Moderate amount of ascitic fluid. 4. Small right pleural effusion. 5. High signal mass in the right-sided the L1 body on the T2-weighted images. Please see lumbar spine MRI for further evaluation. Lumbar Spine MRI 08/30/18 00:00 CONCLUSION: 1. 2.5 cm mass in the right side of the L1 vertebral body with high signal on the T2-weighted images and subtle decreased signal on the T1-weighted images. There is a smaller 8 to 9 mm similar appearing mass in the right side of the ileum. There is a third subtle high signal mass also noted in the L4 vertebral body. Findings are nonspecific but of concern for marrow replacing process such as a metastasis or myeloma. 2. Mild degenerative disc changes with disc bulges and no focal protrusion. Chest X-Ray 08/30/18 14:23 CONCLUSION: No acute cardiopulmonary findings. Assessment and Plan - Assessment (1) Weakness Code(s): R53.1 - Weakness Status: Acute (2) Ascites Code(s): R18.8 - Other ascites Status: Acute (3) Liver mass Code(s): R16.0 - Hepatomegaly, not elsewhere classified Status: Acute (4) Acute kidney injury Code(s): N17.9 - Acute kidney failure, unspecified Status: Acute - Plan Patient is a 73-year-old male who has a past medical history of hypertension, hyperlipidemia, BPH, hypothyroidism and liver disease. He presents to the emergency room with a complaint of abdominal distention. Per emergency room physician -outpatient CT AB pelvis done 4 days ago indicated possible mass in the dome of the liver for which malignancy could not be excluded. There was also nodules in the lung bases suspicious for metastatic disease as well as a possible mass in the L1 vertebral body. Ascites -s/p Paracentesis done in the ED -4 L removed -Hold off on starting spironolactone/Lasix until kidney function has improved -GI consulted- Dr. Sheehan as outpatient GI known to the patient Suspected liver CA with possible metastases -MRI of abdomen and lumbar spine showed: 2.5 cm mass in the right side of the L1 vertebral body with high signal on the T2-weighted images and subtle decreased signal on the T1-weighted images. There is a smaller 8 to 9 mm similar appearing mass in the right side of the ileum. There is a third subtle high signal mass also noted in the L4 vertebral body. Findings are nonspecific but of concern for marrow replacing process such as a metastasis or myeloma. -consult Oncologist- Dr. Garcia is outpatient oncologist -elevated tumor marker 3906 Acute kidney injury/hyperkalemia/hyponatremia -Gentle IVF hydration -kayexalate dose now given -Monitor labs -Hold lisinopril Weakness -Debilitated due to liver disease and chronic EtOH use -PT ordered Hypertension; chronic -Restart patient Norvasc -Hold lisinopril due to MINNA -monitor BP Hypothyroid; chronic -Restart patient levothyroxine Hyperlipidemia; chronic -Hold simvastatin due to muscle weakness and until liver evaluation is complete DVT prophylaxis: SCDs. Code Status: Full code Discussed Condition With: Patient and nurse
--- NOTE | 2018-08-31 12:41 | P.DIET ---
Nutritional Evaluation Type of nutrition evaluation: initial Nutrition screening: Weight Loss > 10 lbs Subjective Subjective Comments: Poor appetite reported. Pt c/o being hungry now but must remains npo for GI procedure. Objective - Diagnosis Ascites, Liver Mass, MINNA - Objective Body Mass Index: 26.0 % IBW: 108 (IBW = 172#) Body Weight Used for Calculations: Actual (84.7 kg) Energy Needs - Lower Range (kCal/kg): 28 Energy Needs - Upper Range (kCal/kg): 32 Lower Limit kCal/kg (kCals): 2,372 Upper Limit kCal/kg (kCals): 2,710 Lower Limit Protein Factor (Grams per Kg): 1.0 Upper Limit Protein Factor (Grams per Kg): 1.5 Lower Protein Needs (Protein): 85 Upper Protein Needs (Protein): 127 Dietitian Reviewed in Medical Record: Current diet, Curent medications, Intake & Output, Labs, Medical history Diet Order: NPO Objective Comments: K 5.7 Meds include synthroid, zofran, protonix Assessment Assessment: Pt is at high nutrition risk 2' to dx and unintentional weight loss. He remains wnl of his IBW range with a BMI of 26.0. Diet is npo. RD will monitor diet advance, intake and medical work-up, to assess the need for supplements. RD following. Recommendations: Advance diet as able RD following Dietitian to Monitor: Lab values, Intake & Output, Weight change, PO Intake, Diet advancement, Medical course
--- NOTE | 2018-08-31 16:30 | ECG ---
Date Performed: 08/30/2018 Time Performed: 14:38:18 PTAGE: 73 years EKG: Sinus rhythm NONSPECIFIC T-WAVE ABNORMALITY BORDERLINE ECG NO PREVIOUS TRACING DOCTOR: Annalise Martin Interpretating Date/Time 08/31/2018 16:28:22
[2018-08-31 18:10] LABS: Baso % (Auto) 0.2 % (0.0-2.0); Eos # (Auto) 0.1 th/mm3 (0.0-0.4); Eos % (Auto) 0.7 % (0.0-4.0); Hematocrit 41.6 % (39.0-51.0); Hemoglobin 14.3 gm/dL (13.0-17.0); Lymph # (Auto) 1.2 th/mm3 (1.0-4.8); Lymph % (Auto) 14.9 % (9.0-44.0); Mean Corpuscular HGB Conc 34.4 % (32.0-36.0); Mean Corpuscular Hemoglobin 32.7 pg (27.0-34.0); Mean Corpuscular Volume 95.1 fL (80.0-100.0); Mean Platelet Volume 8.2 fL (7.0-11.0); Mono # (Auto) 0.9 th/mm3 (0.0-0.9); Mono % (Auto) 10.6 % (0.0-8.0); Neut # (Auto) 5.9 th/mm3 (1.8-7.7); Neut % (Auto) 73.6 % (16.0-70.0); Platelet Count 171 th/mm3 (150-450); Red Blood Count 4.38 mil/mm3 (4.50-5.90); Red Cell Distribution Width 14.9 % (11.6-17.2); White Blood Count 8.1 th/mm3 (4.0-11.0)
[2018-08-31] MEDS: Spironolactone 50 MG Tablet PO SCH (19:09)
[2018-08-31] MEDS: Furosemide 20 MG Tablet PO SCH (19:10)
--- NOTE | 2018-08-31 19:42 | MB ---
cc: Olivier Ibarra MD DATE: 08/31/2018 ENVIRONMENTAL LABORATORY TECHNICIAN: Olivier Ibarra MD HISTORY OF PRESENT ILLNESS: I was asked to see this patient regarding cirrhosis, ascites and a liver mass. He was in his normal state of health until 3-4 weeks ago when he started noticing increased abdominal distention with pressure and early satiety. No fever or chills. He had developed some abdominal discomfort from the pressure, but no severe pain. No other symptoms. He has undergone panendoscopy and colonoscopy this past March because of Hemoccult positive stool. Polyps were found in the colon and were removed. He describes inflammation of the upper GI tract and was put on a medication for this. PAST MEDICAL HISTORY: His medical history is otherwise significant for benign prostatic hypertrophy, hyperlipidemia, hypertension, hypothyroidism. PAST SURGICAL HISTORY: ____, right knee joint replacement. FAMILY HISTORY: Unremarkable for any gastrointestinal or liver-related processes. MEDICATIONS AT HOME: 1. Pravastatin. 2. Omeprazole 20 mg daily. 3. Lisinopril 20 mg daily. 4. Levothyroxine. 5. Amlodipine 10 mg daily. MEDICATIONS HERE IN THE HOSPITAL: 1. Amlodipine. 2. Bisacodyl. 3. Lactulose p.r.n. for constipation. 4. Levothyroxine. 5. Ondansetron. 6. Pantoprazole 20 mg daily. 7. Senna twice a day with docusate sodium. ALLERGIES: NONE KNOWN TO MEDICATIONS. SOCIAL HISTORY: Tobacco use in the past. Alcohol use, none in 2 months, but before that, he said he would drink about 5 beers per day. REVIEW OF SYSTEMS: He has had no history of seizures or strokes. He denies headaches or vision difficulties. No dysphagia, odynophagia or reflux symptomatology. No urinary symptoms. No unexplained weight loss. No new joint pains. No rashes. No history of liver disease documented. No history of pancreatic disease or adrenal disease. PHYSICAL EXAMINATION: VITAL SIGNS: His weight is 84.7, temperature 97.8, pulse 72, blood pressure 139/88, oxygen saturation 94% on room air. GENERAL: He is alert. He is oriented x 3. HEENT: Anicteric. Extraocular motions are intact. LYMPHATIC: I appreciate no submandibular, cervical, supraclavicular, axillary or epitrochlear adenopathy. LUNGS: Clear to auscultation. HEART: Regular rate and rhythm with a 1/6 murmur. ABDOMEN: Distended abdomen with good bowel sounds. No appreciable bruit. There is tympany centrally and dullness laterally. Fluid wave is noted. There is mild nonfocal tenderness. No palpable hepatosplenomegaly is noted. EXTREMITIES: I appreciate no caput medusae, palmar erythema or telangiectasias in the chest wall or Dupuytren contractures, pedal edema, asterixis or nystagmus. LABORATORY STUDIES: Yesterday, white count 8.1, hemoglobin 16.3, platelets 244. INR 1.2. Today's sodium is 130, potassium 5.7, BUN 40, creatinine 1.21, bilirubin 2.1, AST 216, ALT 57, alkaline phosphatase 340. Ammonia level yesterday was less than 10. Albumin 2.8. Serum alpha fetoprotein tumor marker 39,106. Peritoneal fluid analysis revealed 359 red cells and no total white cells. Total protein was 0.4, albumin 0.2, amylase 7. Cytology was just ordered. MELD score is 11 with a MELD-sodium score of 18. RADIOLOGIC STUDIES: I reviewed the MRI with Dr. Art Posey. This reveals a lot of ascites with evidence of cirrhosis of the liver. Prominent veins are noted around the liver and the stomach suggestive of varices. There seems to be a mass in the caudate lobe of the liver, suspicious for hepatoma. There is evidence of a central portal vein thrombus. There is a high signal mass in the right side of the L1 body. 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 There is a suspicious lesion in the liver with a high alpha fetoprotein tumor marker. This is likely a hepatoma. Fluid cytology was just ordered. If cancer cells are evident in this fluid, this would be diagnostic. At this point, a 2 gram sodium, high protein diet is recommended. We will start diuretics with furosemide and spironolactone. I recommend changing amlodipine to propranolol to help with portal pressure. With a portal vein clot and the suspicious lesion suggestive of a hepatoma, a hematology/oncology evaluation would be recommended. I will follow along closely. Consideration may be given to a liver transplant; however, with his recent cessation of alcohol, he may not be a candidate. MD BATOOL Laurent/john , 04:36 PM , 04:51 PM
[2018-08-31] MEDS: Propranolol 10 MG Tablet PO SCH (21:07)
--- NOTE | 2018-09-01 00:06 | MB ---
cc: Cuba Dougherty MD DATE: 08/31/2018 REASON FOR CONSULTATION: Consult requested by hospitalist for evaluation of liver mass, multiple lower lung lesions, and L1 mass. HISTORY OF PRESENT ILLNESS: This is a 73-year-old male who has a history of alcoholism. He stated that he saw a direct support staff member about 6 months ago and underwent upper endoscopy and colonoscopy, He did not have any abdominal distention at that time. The patient has been complaining of bloating, anorexia, and at times vomiting. These symptoms started 3-4 weeks ago. Thiese were slowly getting worse and noticed significant abdominal distention. He went to see his primary physician at [facility]. They did blood test and calcium was found to be elevated. He was referred to static balancer, Dr. Jose Soto at [phone]. The static balancer, Dr. Jose Soto, ordered CT scan of the abdomen and pelvis, which was done at [facility] on 08/26/2018. This revealed cirrhosis of the liver with ascites, a mass in the dome of the liver with multiple lesions in the lower lung field on both sides. There is also a mass noted by L1. This was highly suspicious for malignancy. The patient was advised to report to the emergency room for further evaluation. The patient came into the emergency room yesterday and was complaining of severe abdominal distention and discomfort. He underwent therapeutic paracentesis by the ER physician. He was able to remove 4 liters and he felt somewhat better, but it appears that the fluid is coming back. MRI of the abdomen shows central portal vein thrombosis, Cirrhotic liver with a mass in the dome, moderate ascites, small right pleural effusion. The MRI of the lumbar spine shows a 2.5 cm mass on the right side of the L1 vertebral body. GI has been consulted and I have been asked to see the patient for further evaluation. The patient is in obvious discomfort due to abdominal distention. He had a paracentesis yesterday and now the fluid has reaccumulated. His renal function is improving as well. The rest of the review of systems is negative. PAST MEDICAL HISTORY: Colonic polyp, BPH, hypercholesterolemia, hypertension, hypothyroidism, alcoholism. PAST SURGICAL HISTORY: Right knee surgery. ALLERGIES: NONE. MEDICATIONS: 1. Amlodipine. 2. Lisinopril. 3. Levothyroxine. 4. Omeprazole. 5. Pravastatin. FAMILY HISTORY: None for malignancy. SOCIAL HISTORY: The patient is and lives with his . He used to drink alcohol heavily, quit about 2 months ago. He also used to smoke cigarettes, quit a long time ago. PHYSICAL EXAMINATION: GENERAL: He is a well-developed, ill-appearing white male in no apparent distress. VITAL SIGNS: Temperature 97.9, heart rate is 92, blood pressure 149/99. HEENT: PERRLA. EOMI, anicteric. No oral lesions noted. NECK: No lymphadenopathy noted. LUNGS: No wheezing, rhonchi, or rales. HEART: Regular rate and rhythm. ABDOMEN: Distended, ascites noted. Unable to feel the liver or spleen due to the massive ascites. EXTREMITIES: Edema noted in both lower legs. NEUROLOGIC: Awake, alert, oriented x3. SKIN: No significant lesions noted. ASSESSMENT: 1. Liver mass in the background of cirrhosis and elevated alpha-fetoprotein of almost 4000. This is consistent with hepatocellular carcinoma with metastasis to lung and bone. 2. Alcoholism, quit 2 months ago. 3. Benign prostatic hypertrophy. 4. Hypercholesterolemia. 5. Hypertension. 6. Hypothyroidism. PLAN: I have reviewed his available records and I have discussed with the patient regarding the abnormal CT scan of the abdomen and pelvis, which was done at [facility] on 08/26/2018. We also reviewed the MRI of the abdomen and lumbar spine. The patient was evaluated by static balancer, Dr. Jose Soto. The medical record needs to be corrected as it states that the patient was seen by oncologist, Dr. Garcia, which is not true. The patient was referred to Dr. Jose Soto for hypercalcemia by primary physician at [facility]. His calcium now is normal. He has evidence of portal vein thrombosis and large hepatic mass with multiple lung nodules and a mass in the lumbar spine. We discussed that most likely he has stage IV hepatocellular carcinoma. I will get the CT scan of the chest and bone scan for further evaluation and staging of the cancer. Given that the alpha-fetoprotein is almost 4000 and cirrhosis with large liver mass, I do not think that we need to do the biopsy. This is consistent with hepatocellular carcinoma. We will discuss the treatment options once we get the results of the CT scan of the chest and bone scan. He is a very poor candidate for any treatment due to his frail condition. We discussed that unfortunately his cancer is not curable, but it is treatable. One could offer him Nexavar systemic treatment. Further recommendations to follow. Thank you for asking my opinion. MD MANFRED Gipson/jessica , 11:11 PM , 11:30 PM RACHEL
[2018-09-01 06:20] LABS: Calcium 9.5 mg/dL (8.5-10.1); Carbon Dioxide 21.7 meq/L (21.0-32.0); Potassium 4.1 meq/L (3.5-5.1)
[2018-09-01 08:15] LABS: Albumin 2.8 g/dL (3.4-5.0); Total Protein 6.7 g/dL (6.4-8.2)
--- NOTE | 2018-09-01 08:36 | CT ---
EXAM DATE: 09/01/2018 7:36 AM EDT AGE/SEX: 73 years / Male INDICATIONS: Evaluate for metastatic disease. CLINICAL DATA: This is the patient's initial encounter. Patient reports that signs and symptoms have been present for 1 day and indicates a pain score of 0/10. MEDICAL/SURGICAL HISTORY: Hypertension. None. RADIATION DOSE: 14.29 CTDI (mGy) COMPARISON: [facility], CT ABDOMEN AND PELVIS W AND W/O CONTRAST, 08/26/2018. . TECHNIQUE: Multiple contiguous axial images were obtained through the chest during bolus infusion of 60 ml Omnipaque 350 (iohexol) nonionic water-soluble contrast as a single exam dose. Images were obtained in suspended respiration using multiple row detector helical technique. Using automated exp osure control and adjustment of the mA and/or kV according to patient size, radiation dose was kept a s low as reasonably achievable to obtain optimal diagnostic quality images. DICOM format image data is available electronically for review and comparison. FINDINGS: Lungs: There are multiple noncalcified nodules scattered throughout both lungs with the largest loca luciana in the left upper lobe medially measuring 18 mm in greatest dimension. The findings are consisten t with metastatic disease until proven otherwise. Scattered fibrotic scarring is noted within the ibeth gs bilaterally. Mediastinum: There is good visualization of the great vessels of the middle mediastinum. No evidenc e of mediastinal or hilar adenopathy/mass. There is mild dilatation of the ascending thoracic aorta w hich measures 4 cm in greatest dimension. Coronary artery calcifications are noted. Pleurae: No evidence of focal thickening or pleural effusion. Axillae: Unremarkable. Bony Structures: Degenerative changes and scoliosis of the thoracic spine. Miscellaneous: Portal venous thrombus is noted. Extensive ascites is noted within the upper abdomen. The visualized portion of the liver is heterogeneous in attenuation. There is questionable focal dil atation of the biliary system within the right hepatic lobe. CONCLUSION: 1. Multiple noncalcified nodules scattered throughout both lungs with the largest located in the lef t upper lobe medially measuring 18 mm in greatest dimension. The findings are consistent with metasta tic disease until proven otherwise. 2. Portal venous thrombus. 3. Extensive ascites within the upper abdomen. 4. Heterogeneous liver with questionable focal dilatation of the intrahepatic biliary system in the right lobe. 5. Mild dilatation of the ascending thoracic aorta measuring 4 cm in greatest dimension. 6. Coronary artery calcification. 7. Scattered fibrotic scarring within the lungs. 8. Mild degenerative changes and scoliosis of the thoracic spine. Electronically signed by: Srinivasan Quinones MD 09/01/2018 8:35 AM EDT
[2018-09-01] MEDS: Propranolol 10 MG Tablet PO SCH ×2 (08:55→20:32)
[2018-09-01] MEDS: Spironolactone 50 MG Tablet PO SCH ×2 (09:01→17:43)
[2018-09-01] MEDS: Pantoprazole Sodium 20 MG DR Tablet PO SCH (09:01)
[2018-09-01] MEDS: Senna/Docusate Sodium 8.6/50 MG Tablet PO SCH (09:01)
[2018-09-01] MEDS: Furosemide 20 MG Tablet PO SCH ×2 (09:01→17:43)
[2018-09-01 10:21] LABS: Baso % (Auto) 0.5 % (0.0-2.0); Eos # (Auto) 0.2 th/mm3 (0.0-0.4); Eos % (Auto) 2.6 % (0.0-4.0); Hematocrit 43.6 % (39.0-51.0); Lymph # (Auto) 1.2 th/mm3 (1.0-4.8); Lymph % (Auto) 14.1 % (9.0-44.0); Mean Corpuscular HGB Conc 34.4 % (32.0-36.0); Mean Corpuscular Hemoglobin 32.9 pg (27.0-34.0); Mean Corpuscular Volume 95.6 fL (80.0-100.0); Mean Platelet Volume 8.2 fL (7.0-11.0); Mono % (Auto) 11.6 % (0.0-8.0); Neut % (Auto) 71.2 % (16.0-70.0); Platelet Count 207 th/mm3 (150-450); Red Blood Count 4.56 mil/mm3 (4.50-5.90); Red Cell Distribution Width 15.3 % (11.6-17.2); White Blood Count 8.5 th/mm3 (4.0-11.0)
--- NOTE | 2018-09-01 11:55 | P.PNIM ---
Subjective Interval history: Follow-up ascites, liver mass/with possible metastasis, MINNA. Patient awake and oriented x3 laying in bed denies any abdominal pain, nausea or vomiting. Patient denies any fever or chills, denies any pain or shortness of breath. Discussed CT scan and plan of care with the patient patient understands answers questions. Physical Exam Vital signs: Vital Signs 08/31/18 12:00 08/31/18 16:00 08/31/18 20:00 Temperature 97.8 F 97.9 F Pulse Rate 72 75 78 Respiratory Rate 18 18 Blood Pressure 139/88 149/99 H Pulse Oximetry 94 L 95 09/01/18 00:00 09/01/18 00:10 09/01/18 04:00 Temperature 97.6 F Pulse Rate 63 74 56 L Respiratory Rate 18 Blood Pressure 131/89 Pulse Oximetry 96 09/01/18 08:00 Temperature 97.7 F Pulse Rate 65 Respiratory Rate 18 Blood Pressure 122/75 Pulse Oximetry 93 L Intake & Output 08/31/18 09/01/18 09/01/18 18:59 06:59 18:59 Intake Total 120 / 120 Balance 120 / 120 Intake: Oral 120 / 120 Other: # Voids 2 Date of Last Bowel Movement 08/31/18 08/31/18 # Bowel Movements 1 Results - Labs CBC & Chem 7: 09/01/18 09:20 09/01/18 04:20 Laboratory Results - last 24 hr 08/31/18 09/01/18 09/01/18 17:26 04:20 04:20 WBC 8.1 RBC 4.38 L Hgb 14.3 D Hct 41.6 MCV 95.1 MCH 32.7 MCHC 34.4 RDW 14.9 Plt Count 171 MPV 8.2 Neut % (Auto) 73.6 H Lymph % (Auto) 14.9 Deuel % (Auto) 10.6 H Eos % (Auto) 0.7 Baso % (Auto) 0.2 Neut # (Auto) 5.9 Lymph # (Auto) 1.2 Deuel # (Auto) 0.9 Eos # (Auto) 0.1 Baso # (Auto) 0.0 WBC Differential . Differential Comment Auto diff final Sodium 132 L Potassium 4.1 D Chloride 100 Carbon Dioxide 21.7 Anion Gap 10 BUN 41 H Creatinine 1.23 Estimated GFR 57 L Random Glucose 90 Calcium 9.5 Total Bilirubin 1.7 H Cancelled Direct Bilirubin 0.9 H Cancelled Indirect Bilirubin 0.8 Cancelled AST 164 H Cancelled ALT 60 Cancelled Alkaline Phosphatase 375 H Cancelled Total Protein 6.7 Cancelled Albumin 2.8 L Cancelled 09/01/18 09:20 WBC 8.5 RBC 4.56 Hgb 15.0 Hct 43.6 MCV 95.6 MCH 32.9 MCHC 34.4 RDW 15.3 Plt Count 207 MPV 8.2 Neut % (Auto) 71.2 H Lymph % (Auto) 14.1 Deuel % (Auto) 11.6 H Eos % (Auto) 2.6 Baso % (Auto) 0.5 Neut # (Auto) 6.0 Lymph # (Auto) 1.2 Deuel # (Auto) 1.0 H Eos # (Auto) 0.2 Baso # (Auto) 0.0 WBC Differential . Differential Comment Auto diff final Sodium Potassium Chloride Carbon Dioxide Anion Gap BUN Creatinine Estimated GFR Random Glucose Calcium Total Bilirubin Direct Bilirubin Indirect Bilirubin AST ALT Alkaline Phosphatase Total Protein Albumin - Imaging Impressions Chest CT 09/01/18 00:00 CONCLUSION: 1. Multiple noncalcified nodules scattered throughout both lungs with the largest located in the left upper lobe medially measuring 18 mm in greatest dimension. The findings are consistent with metastatic disease until proven otherwise. 2. Portal venous thrombus. 3. Extensive ascites within the upper abdomen. 4. Heterogeneous liver with questionable focal dilatation of the intrahepatic biliary system in the right lobe. 5. Mild dilatation of the ascending thoracic aorta measuring 4 cm in greatest dimension. 6. Coronary artery calcification. 7. Scattered fibrotic scarring within the lungs. 8. Mild degenerative changes and scoliosis of the thoracic spine. Assessment and Plan - Assessment (1) Weakness Code(s): R53.1 - Weakness Status: Acute (2) Ascites Code(s): R18.8 - Other ascites Status: Acute (3) Liver mass Code(s): R16.0 - Hepatomegaly, not elsewhere classified Status: Acute (4) Acute kidney injury Code(s): N17.9 - Acute kidney failure, unspecified Status: Acute - Plan Patient is a 73-year-old male who has a past medical history of hypertension, hyperlipidemia, BPH, hypothyroidism and liver disease. He presents to the emergency room with a complaint of abdominal distention. Per emergency room physician -outpatient CT AB pelvis done 4 days ago indicated possible mass in the dome of the liver for which malignancy could not be excluded. There was also nodules in the lung bases suspicious for metastatic disease as well as a possible mass in the L1 vertebral body. Ascitis/ Metastatic hepatoma/ Portal vein clot s/p Paracentesis done in the ED -4 L removed -MRI of abdomen and lumbar spine showed: 2.5 cm mass in the right side of the L1 vertebral body with high signal on the T2-weighted images and subtle decreased signal on the T1-weighted images. There is a smaller 8 to 9 mm similar appearing mass in the right side of the ileum. There is a third subtle high signal mass also noted in the L4 vertebral body. Findings are nonspecific but of concern for marrow replacing process such as a metastasis or myeloma. -Oncologist following ordered for chest CT and bone scan (Dr. Garcia was consulted as outpatient by his PCP but was never seen, the appointment schedule was suppose to be this week) -elevated tumor marker 3906 -peritoneal cytology sent: results pending -GI following-Dr Ibarra -started on Lasix and Spironolactone per GI recommendation Acute kidney injury/hyperkalemia/hyponatremia -Gentle IVF hydration -kayexalate dose now given -Monitor labs -Hold lisinopril Weakness -Debilitated due to liver disease and chronic EtOH use -PT ordered Hypertension; chronic - Norvasc discontinued, changed to propranolol as non selective BB -Hold lisinopril due to MINNA -monitor BP Hypothyroid; chronic -Restart patient levothyroxine Hyperlipidemia; chronic -Hold simvastatin due to muscle weakness and until liver evaluation is complete DVT prophylaxis: SCDs. Code Status: full code Discussed Condition With: ryan, nurse, Dr Ibarra and Dr. Maciel
--- NOTE | 2018-09-01 14:14 | NM ---
INDICATIONS: Patient with metastatic disease of unknown primary with multiple pulmonary nodules and portal vein thrombosis. There is a possible hepatic mass. CLINICAL DATA: This is the patient's initial encounter. Patient reports that signs and symptoms have been present for 1 day and indicates a pain score of 0/10. MEDICAL/SURGICAL HISTORY: Hypertension. Total knee replacement, right. COMPARISON: [facility] [place], MRI ABDOMEN W/O CONTRAST, 08/30/2018. . TECHNIQUE: . . Whole body bone scan was performed at 2-3 hours. No correlative bone scan available for comparison. DOSE: 31 mCi Tc99m MDP IV FINDINGS: Whole body bone scan demonstrates no suspicious uptake in the axial or appendicular skeleton. No foc al areas of increased or decreased uptake are seen. There is normal renal and bladder activity. CONCLUSION: 1. Negative exam with no evidence of osseous metastasis. Electronically signed by: Trey Campbell MD 09/01/2018 2:13 PM EDT
--- NOTE | 2018-09-01 15:10 | P.PNONC ---
Subjective Interval history: Patient just returning to room from radiology. He has no complaints at this time. He denies N/V/D. Denies any bleeding. And denies pain. Objective Vital Signs/Intake & Output: Vital Signs 08/31/18 16:00 08/31/18 20:00 09/01/18 00:00 Temperature 97.9 F Pulse Rate 75 78 63 Respiratory Rate 18 Blood Pressure 149/99 H Pulse Oximetry 95 09/01/18 00:10 09/01/18 04:00 09/01/18 08:00 Temperature 97.6 F 97.7 F Pulse Rate 74 56 L 65 Respiratory Rate 18 18 Blood Pressure 131/89 122/75 Pulse Oximetry 96 93 L 09/01/18 12:00 Temperature 97.5 F L Pulse Rate 56 L Respiratory Rate 16 Blood Pressure 113/66 Pulse Oximetry 96 Intake & Output 08/31/18 09/01/18 09/01/18 18:59 06:59 18:59 Intake Total 120 / 120 Balance 120 / 120 Intake: Oral 120 / 120 Other: # Voids 2 Date of Last Bowel Movement 08/31/18 08/31/18 # Bowel Movements 1 Result Diagrams: 09/01/18 09:20 09/01/18 04:20 Laboratory Results: Laboratory Results - last 24 hr 08/31/18 09/01/18 09/01/18 17:26 04:20 04:20 WBC 8.1 RBC 4.38 L Hgb 14.3 D Hct 41.6 MCV 95.1 MCH 32.7 MCHC 34.4 RDW 14.9 Plt Count 171 MPV 8.2 Neut % (Auto) 73.6 H Lymph % (Auto) 14.9 Martin % (Auto) 10.6 H Eos % (Auto) 0.7 Baso % (Auto) 0.2 Neut # (Auto) 5.9 Lymph # (Auto) 1.2 Martin # (Auto) 0.9 Eos # (Auto) 0.1 Baso # (Auto) 0.0 WBC Differential . Differential Comment Auto diff final Sodium 132 L Potassium 4.1 D Chloride 100 Carbon Dioxide 21.7 Anion Gap 10 BUN 41 H Creatinine 1.23 Estimated GFR 57 L Random Glucose 90 Calcium 9.5 Total Bilirubin 1.7 H Cancelled Direct Bilirubin 0.9 H Cancelled Indirect Bilirubin 0.8 Cancelled AST 164 H Cancelled ALT 60 Cancelled Alkaline Phosphatase 375 H Cancelled Total Protein 6.7 Cancelled Albumin 2.8 L Cancelled 09/01/18 09:20 WBC 8.5 RBC 4.56 Hgb 15.0 Hct 43.6 MCV 95.6 MCH 32.9 MCHC 34.4 RDW 15.3 Plt Count 207 MPV 8.2 Neut % (Auto) 71.2 H Lymph % (Auto) 14.1 Martin % (Auto) 11.6 H Eos % (Auto) 2.6 Baso % (Auto) 0.5 Neut # (Auto) 6.0 Lymph # (Auto) 1.2 Martin # (Auto) 1.0 H Eos # (Auto) 0.2 Baso # (Auto) 0.0 WBC Differential . Differential Comment Auto diff final Sodium Potassium Chloride Carbon Dioxide Anion Gap BUN Creatinine Estimated GFR Random Glucose Calcium Total Bilirubin Direct Bilirubin Indirect Bilirubin AST ALT Alkaline Phosphatase Total Protein Albumin Imaging Studies: Impressions Bone Scan Nuclear Medicine 09/01/18 00:00 CONCLUSION: 1. Negative exam with no evidence of osseous metastasis. Chest CT 09/01/18 00:00 CONCLUSION: 1. Multiple noncalcified nodules scattered throughout both lungs with the largest located in the left upper lobe medially measuring 18 mm in greatest dimension. The findings are consistent with metastatic disease until proven otherwise. 2. Portal venous thrombus. 3. Extensive ascites within the upper abdomen. 4. Heterogeneous liver with questionable focal dilatation of the intrahepatic biliary system in the right lobe. 5. Mild dilatation of the ascending thoracic aorta measuring 4 cm in greatest dimension. 6. Coronary artery calcification. 7. Scattered fibrotic scarring within the lungs. 8. Mild degenerative changes and scoliosis of the thoracic spine. Medications: Active Medications Generic Name Dose Route Start Last Admin Trade Name Freq PRN Reason Stop Dose Admin Furosemide 20 mg 08/31/18 18:00 09/01/18 09:01 Lasix PO 20 mg BID@0900,1800 ASHWINI Administration Levothyroxine Sodium 25 mcg 08/31/18 06:00 09/01/18 05:51 Synthroid PO 25 mcg DAILY@0600 ASHWINI Administration Pantoprazole Sodium 20 mg 08/31/18 09:00 09/01/18 09:01 Protonix PO 20 mg DAILY ASHWINI Administration Propranolol HCl 10 mg 08/31/18 21:00 09/01/18 08:55 Inderal PO 10 mg BID ASHWINI Administration Senna/Docusate Sodium 1 tab 08/30/18 21:00 09/01/18 09:01 Migdalia-Colace PO 1 tab BID ASHWINI Administration Sodium Chloride 2 ml 08/30/18 14:23 09/01/18 09:03 Ns Flush IV.FLUSH 2 ml PRN PRN Administration FLUSH AFTER USING IV ACCESS Spironolactone 50 mg 08/31/18 18:00 09/01/18 09:01 Aldactone PO 50 mg BID@0900,1800 ASHWINI Administration Objective Remarks: GENERAL: Elderly male patient, in no acute distress. SKIN: Warm and dry. HEAD: Normocephalic. EYES: No scleral icterus. No injection or drainage. NECK: Supple, trachea midline. CARDIOVASCULAR: Regular rate and rhythm. RESPIRATORY: Breath sounds equal bilaterally. No accessory muscle use. GASTROINTESTINAL: +Ascites. Abdomen large, non-tender, distended. EXTREMITIES: No cyanosis, or edema. MUSCULOSKELETAL: Adequate muscle tone. NEUROLOGICAL: No obvious focal deficit. Awake, alert, and oriented x3. PSYCHIATRIC: Appropriate mood and affect; insight and judgment normal. Assessment/Plan - Plan Mr. Riddle is a pleasant 73-year-old gentleman, who presented to the emergency department with complaints of severe abdominal distention and discomfort. Patient was seen by assembly member Dr. Jose Soto, who ordered a CT scan of the abdomen and pelvis, which was done at [facility] on 08/26/2018. This revealed cirrhosis of the liver with ascites, a mass in the dome of the liver with multiple lesions in the lower lung field on both sides. There is also a mass noted by L1. Plan: 1. Liver mass with history of cirrhosis, elevated alpha-fetoprotein at 3906. Consistent with hepatocellular carcinoma with metastasis to lung and bone. CT chest revealed multiple noncalcified nodules scattered throughout both lungs with the largest located in the left upper lobe medially measuring 18 mm. Findings were consistent with metastatic disease until proven otherwise. Bone scan was negative for osseous metastasis. 2. Ascites with history of cirrhosis, persists. Status post paracentesis by ER physician with 4 L of fluid drained. Cytology is pending. 3. Bone scan report was not available at the time of my exam, therefore pt has not been notified of these results. 4. Continue supportive care. - Attending Statement The exam, history, and the medical decision-making described in the above note were completed with the assistance of the mid-level provider. I reviewed and agree with the findings presented. I attest that I had a [id number] encounter with the patient on the same day, and personally performed and documented my assessment and findings in the medical record. c/o abd distention ansd discomfort CT chest = mult lung mets Bone scan = neg d/w pt and regarding HCCC. discuss BSC with hospise VS Nexavar. Pt wants to try Nexavar. d/w DR Ibarra for Tenckhoff catheter for ascites. Await cytology both have lot of questions. I answered them
--- NOTE | 2018-09-01 16:34 | P.PNGI ---
Subjective Interval history: No new complaints. No increase in urinary output yet, with initiation of diuretics. No pain. Physical Exam Vital signs: Vital Signs 08/31/18 20:00 09/01/18 00:00 09/01/18 00:10 Temperature 97.6 F Pulse Rate 78 63 74 Respiratory Rate 18 Blood Pressure 131/89 Pulse Oximetry 96 09/01/18 04:00 09/01/18 08:00 09/01/18 12:00 Temperature 97.7 F 97.5 F L Pulse Rate 56 L 65 56 L Respiratory Rate 18 16 Blood Pressure 122/75 113/66 Pulse Oximetry 93 L 96 09/01/18 16:00 Temperature 98.1 F Pulse Rate 60 Respiratory Rate 20 Blood Pressure 122/72 Pulse Oximetry 95 Intake & Output 08/31/18 09/01/18 09/01/18 18:59 06:59 18:59 Intake Total 120 / 120 Balance 120 / 120 Intake: Oral 120 / 120 Other: # Voids 2 Date of Last Bowel Movement 08/31/18 08/31/18 # Bowel Movements 1 - Constitutional no acute distress - Routine HEENT Exam Eye: Present: EOMI - Routine Abdominal Exam Comments: Good bowel sounds; distended but not taut. Tympanitic centrally with a fluid wave; non-tender. Results - Labs CBC & Chem 7: 09/01/18 09:20 09/01/18 04:20 Laboratory Results - last 24 hr 08/31/18 09/01/18 09/01/18 17:26 04:20 04:20 WBC 8.1 RBC 4.38 L Hgb 14.3 D Hct 41.6 MCV 95.1 MCH 32.7 MCHC 34.4 RDW 14.9 Plt Count 171 MPV 8.2 Neut % (Auto) 73.6 H Lymph % (Auto) 14.9 [place] % (Auto) 10.6 H Eos % (Auto) 0.7 Baso % (Auto) 0.2 Neut # (Auto) 5.9 Lymph # (Auto) 1.2 [place] # (Auto) 0.9 Eos # (Auto) 0.1 Baso # (Auto) 0.0 WBC Differential . Differential Comment Auto diff final Sodium 132 L Potassium 4.1 D Chloride 100 Carbon Dioxide 21.7 Anion Gap 10 BUN 41 H Creatinine 1.23 Estimated GFR 57 L Random Glucose 90 Calcium 9.5 Total Bilirubin 1.7 H Cancelled Direct Bilirubin 0.9 H Cancelled Indirect Bilirubin 0.8 Cancelled AST 164 H Cancelled ALT 60 Cancelled Alkaline Phosphatase 375 H Cancelled Total Protein 6.7 Cancelled Albumin 2.8 L Cancelled 09/01/18 09:20 WBC 8.5 RBC 4.56 Hgb 15.0 Hct 43.6 MCV 95.6 MCH 32.9 MCHC 34.4 RDW 15.3 Plt Count 207 MPV 8.2 Neut % (Auto) 71.2 H Lymph % (Auto) 14.1 [place] % (Auto) 11.6 H Eos % (Auto) 2.6 Baso % (Auto) 0.5 Neut # (Auto) 6.0 Lymph # (Auto) 1.2 [place] # (Auto) 1.0 H Eos # (Auto) 0.2 Baso # (Auto) 0.0 WBC Differential . Differential Comment Auto diff final Sodium Potassium Chloride Carbon Dioxide Anion Gap BUN Creatinine Estimated GFR Random Glucose Calcium Total Bilirubin Direct Bilirubin Indirect Bilirubin AST ALT Alkaline Phosphatase Total Protein Albumin - Imaging Impressions Bone Scan Nuclear Medicine 09/01/18 00:00 CONCLUSION: 1. Negative exam with no evidence of osseous metastasis. Chest CT 09/01/18 00:00 CONCLUSION: 1. Multiple noncalcified nodules scattered throughout both lungs with the largest located in the left upper lobe medially measuring 18 mm in greatest dimension. The findings are consistent with metastatic disease until proven otherwise. 2. Portal venous thrombus. 3. Extensive ascites within the upper abdomen. 4. Heterogeneous liver with questionable focal dilatation of the intrahepatic biliary system in the right lobe. 5. Mild dilatation of the ascending thoracic aorta measuring 4 cm in greatest dimension. 6. Coronary artery calcification. 7. Scattered fibrotic scarring within the lungs. 8. Mild degenerative changes and scoliosis of the thoracic spine. Assessment and Plan - Plan Cirrhosis with ascites and metastatic hepatoma; he also has a portal vein clot. Awaiting hematology/oncology evaluation. The peritoneal fluid cytology evaluation should be available tomorrow. We'll follow I's/O's and Creatinine and adjust diuretics appropriately. I've discussed the findings of metastatic disease to the bone with the patient.
--- NOTE | 2018-09-01 17:19 | P.CONGI ---
History of Present Illness Chief complaint: ascites, acute kidney injury, liver mass PMFSH - History History Provided By: Patient - Medical History Medical History: Medical History (Last Reviewed 09/01/18 @ 08:18 by Padma Vasquez) BPH (benign prostatic hyperplasia) H/O endoscopy Hypercholesteremia Hypertension Normal colonoscopy Thyroid activity decreased - Surgical History Surgical History: Surgical History (Last Reviewed 09/01/18 @ 08:18 by [facility]) H/O hemorrhoidectomy History of right knee joint replacement - Family History Family History: Family History (Last Reviewed 08/30/18 @ 18:04 by MELVIN Velasquez) Other Family history non-contributory - Tobacco History Second Hand Smoke Exposure: No Tobacco Use In Past 30 Days: No Smoking Status: Former smoker Tobacco Type: Cigarettes - Alcohol History How Often Do You Have a Drink Containing Alcohol: 2 to 4 times a month - Substance Use History Substance History: No History of Abuse - Travel History Recent Travel in the [place] Within the Last 8 Weeks: No Recent Travel Out of the Country Within the Last 8 Weeks: No - Immunization History Tetanus Immunization: Unsure Hx Influenza Vaccine This Season: Yes Medications and Allergies Active Medications: Active Medications Al Hydroxide/Mg Hydroxide (Milk Of Magnesia Liq) 30 ml PO Q12H PRN PRN Reason: Mild Constipation Bisacodyl (Dulcolax Supp) 10 mg RECTAL DAILY PRN PRN Reason: SEVERE CONSITIPATION Furosemide (Lasix) 20 mg PO BID@0900,1800 [facility] Last Admin: 09/01/18 09:01 Dose: 20 mg Lactulose (Lactulose Liq) 30 ml PO DAILY PRN PRN Reason: SEVERE CONSITIPATION Levothyroxine Sodium (Synthroid) 25 mcg PO DAILY@0600 [facility] Last Admin: 09/01/18 05:51 Dose: 25 mcg Ondansetron HCl (Zofran Inj) 4 mg IV.PUSH Q6H PRN PRN Reason: NAUSEA OR VOMITING Pantoprazole Sodium (Protonix) 20 mg PO DAILY [facility] Last Admin: 09/01/18 09:01 Dose: 20 mg Propranolol HCl (Inderal) 10 mg PO BID [facility] Last Admin: 09/01/18 08:55 Dose: 10 mg Senna/Docusate Sodium (Migdalia-Colace) 1 tab PO BID [facility] Last Admin: 09/01/18 09:01 Dose: 1 tab Sennosides (Senokot) 17.2 mg PO Q12H PRN PRN Reason: Moderate Constipation Sodium Chloride (Ns Flush) 2 ml IV.FLUSH PRN PRN PRN Reason: FLUSH AFTER USING IV ACCESS Last Admin: 09/01/18 09:03 Dose: 2 ml Spironolactone (Aldactone) 50 mg PO BID@0900,1800 [facility] Last Admin: 09/01/18 09:01 Dose: 50 mg Allergies Allergy/AdvReac Type Severity Reaction Status Date / Time No Known Allergies Allergy Verified 08/30/18 14:07 Home Medications Medication Instructions Recorded Confirmed Type amlodipine 10 mg PO DAILY 08/30/18 08/30/18 History levothyroxine 25 mcg PO DAILY 08/30/18 08/30/18 History lisinopril 20 mg PO DAILY 08/30/18 08/30/18 History omeprazole 20 mg PO DAILY 08/30/18 08/30/18 History pravastatin 40 mg PO DAILY 08/30/18 08/30/18 History Exam Vital signs: Vital Signs 08/31/18 20:00 09/01/18 00:00 09/01/18 00:10 Temperature 97.6 F Pulse Rate 78 63 74 Respiratory Rate 18 Blood Pressure 131/89 Pulse Oximetry 96 09/01/18 04:00 09/01/18 08:00 09/01/18 12:00 Temperature 97.7 F 97.5 F L Pulse Rate 56 L 65 56 L Respiratory Rate 18 16 Blood Pressure 122/75 113/66 Pulse Oximetry 93 L 96 09/01/18 16:00 Temperature 98.1 F Pulse Rate 60 Respiratory Rate 20 Blood Pressure 122/72 Pulse Oximetry 95 Intake & Output 08/31/18 09/01/18 09/01/18 18:59 06:59 18:59 Intake Total 120 / 120 Balance 120 / 120 Intake: Oral 120 / 120 Other: # Voids 2 Date of Last Bowel Movement 08/31/18 08/31/18 # Bowel Movements 1 Results - Labs CBC & Chem 7: 09/01/18 09:20 09/01/18 04:20 Labs: Laboratory Results - last 24 hr 08/31/18 09/01/18 09/01/18 17:26 04:20 04:20 WBC 8.1 RBC 4.38 L Hgb 14.3 D Hct 41.6 MCV 95.1 MCH 32.7 MCHC 34.4 RDW 14.9 Plt Count 171 MPV 8.2 Neut % (Auto) 73.6 H Lymph % (Auto) 14.9 [place] % (Auto) 10.6 H Eos % (Auto) 0.7 Baso % (Auto) 0.2 Neut # (Auto) 5.9 Lymph # (Auto) 1.2 [place] # (Auto) 0.9 Eos # (Auto) 0.1 Baso # (Auto) 0.0 WBC Differential . Differential Comment Auto diff final Sodium 132 L Potassium 4.1 D Chloride 100 Carbon Dioxide 21.7 Anion Gap 10 BUN 41 H Creatinine 1.23 Estimated GFR 57 L Random Glucose 90 Calcium 9.5 Total Bilirubin 1.7 H Cancelled Direct Bilirubin 0.9 H Cancelled Indirect Bilirubin 0.8 Cancelled AST 164 H Cancelled ALT 60 Cancelled Alkaline Phosphatase 375 H Cancelled Total Protein 6.7 Cancelled Albumin 2.8 L Cancelled 09/01/18 09:20 WBC 8.5 RBC 4.56 Hgb 15.0 Hct 43.6 MCV 95.6 MCH 32.9 MCHC 34.4 RDW 15.3 Plt Count 207 MPV 8.2 Neut % (Auto) 71.2 H Lymph % (Auto) 14.1 [place] % (Auto) 11.6 H Eos % (Auto) 2.6 Baso % (Auto) 0.5 Neut # (Auto) 6.0 Lymph # (Auto) 1.2 [place] # (Auto) 1.0 H Eos # (Auto) 0.2 Baso # (Auto) 0.0 WBC Differential . Differential Comment Auto diff final Sodium Potassium Chloride Carbon Dioxide Anion Gap BUN Creatinine Estimated GFR Random Glucose Calcium Total Bilirubin Direct Bilirubin Indirect Bilirubin AST ALT Alkaline Phosphatase Total Protein Albumin - Imaging Impressions Bone Scan Nuclear Medicine 09/01/18 00:00 CONCLUSION: 1. Negative exam with no evidence of osseous metastasis. Chest CT 09/01/18 00:00 CONCLUSION: 1. Multiple noncalcified nodules scattered throughout both lungs with the largest located in the left upper lobe medially measuring 18 mm in greatest dimension. The findings are consistent with metastatic disease until proven otherwise. 2. Portal venous thrombus. 3. Extensive ascites within the upper abdomen. 4. Heterogeneous liver with questionable focal dilatation of the intrahepatic biliary system in the right lobe. 5. Mild dilatation of the ascending thoracic aorta measuring 4 cm in greatest dimension. 6. Coronary artery calcification. 7. Scattered fibrotic scarring within the lungs. 8. Mild degenerative changes and scoliosis of the thoracic spine.
[2018-09-02 05:15] VITALS: O2SAT 95
[2018-09-02 06:41] LABS: Albumin 2.5 g/dL (3.4-5.0); Anion Gap 10 meq/L (5-15); Aspartate Aminotransferase 141 U/L (15-37); Blood Urea Nitrogen 44 mg/dL (7-18); Calcium 9.2 mg/dL (8.5-10.1); Carbon Dioxide 19.8 meq/L (21.0-32.0); Chloride 100 meq/L (98-107); Glomerular Filtration Rate 52 mL/min (>89); Glucose,Random 86 mg/dL (74-106); Magnesium 2.1 mg/dL (1.5-2.5); Potassium 4.1 meq/L (3.5-5.1); Sodium 130 meq/L (136-145)
[2018-09-02 06:43] LABS: Alanine Aminotransferase 56 U/L (12-78)
[2018-09-02 06:45] LABS: Alkaline Phosphatase 409 U/L (45-117); Total Protein 6.5 g/dL (6.4-8.2)
[2018-09-02] MEDS: Pantoprazole Sodium 20 MG DR Tablet PO SCH (08:42)
[2018-09-02] MEDS: Spironolactone 50 MG Tablet PO SCH ×2 (08:42→17:19)
[2018-09-02] MEDS: Furosemide 20 MG Tablet PO SCH ×2 (08:42→17:19)
[2018-09-02] MEDS: Propranolol 10 MG Tablet PO SCH ×2 (08:42→20:40)
--- NOTE | 2018-09-02 10:14 | P.PNIM ---
Subjective Interval history: Follow-up ascites, liver mass with metastasis to the lungs, acute kidney injury. Patient awake alert and oriented x3, sitting in his bed comfortably, denies any pain or shortness of breath. Patient patient stated confused with what is going on and what to do and decide for treatment. Patient stated he wants to talk again to the oncologist to decide what treatment he wanted. Patient given an option for hospice care/palliative care for comfort care order oncology recommendation for possible medication treatment with Nexavar. Patient complained about the discomfort on the left abdominal incision which is draining, has to change the drainage dressing twice. Discussed the plan for a drainage to be placed, if okay with GI. Discussed the patient the plan for an outpatient treatment if he choose to have the medication and follow-up with oncology as an outpatient. Patient denies any headache or dizziness, denies any pain chest pain or shortness of breath, denies any nausea or vomiting. Patient denies any diarrhea or constipation. Patient denies any fever or chills. Physical Exam Vital signs: Vital Signs 09/01/18 12:00 09/01/18 16:00 09/01/18 20:00 Temperature 97.5 F L 98.1 F 97.8 F Pulse Rate 56 L 60 64 Respiratory Rate 16 20 18 Blood Pressure 113/66 122/72 108/64 Pulse Oximetry 96 95 93 L 09/02/18 00:00 09/02/18 04:00 09/02/18 08:00 Temperature 97.3 F L 97.7 F 97.3 F L Pulse Rate 59 L 57 L 58 L Respiratory Rate 18 18 16 Blood Pressure 119/76 100/59 L 113/82 Pulse Oximetry 93 L 95 95 Intake & Output 09/01/18 09/02/18 09/02/18 18:59 06:59 18:59 Intake Total 480 / 480 Output Total 500 / 500 Balance -20 / -20 Weight 82.6 kg Intake: Oral 480 / 480 Output: Urine 500 / 500 Other: # Voids 2 2 Date of Last Bowel Movement 09/01/18 09/01/18 Narrative: GENERAL: Well-developed, well-nourished, alert and oriented x3, with no apparent distress SKIN: Warm and dry. Right lower abdominal puncture site draining serosanguineous with dressing HEAD: Atraumatic. Normocephalic. EYES: Pupils equal and round. No scleral icterus. No injection or drainage. ENT: No nasal bleeding or discharge. Mucous membranes pink and moist. NECK: Trachea midline. No JVD. CARDIOVASCULAR: Regular rate and rhythm. RESPIRATORY: No accessory muscle use. Clear to auscultation. Breath sounds equal bilaterally. GASTROINTESTINAL: Abdomen distended, non-tender. Bowel sounds present in all 4 quadrants. MUSCULOSKELETAL: Extremities without clubbing, cyanosis, or edema. No obvious deformities. NEUROLOGICAL: Awake and alert. No obvious cranial nerve deficits. Motor grossly within normal limits. Moving all 4 extremities. Normal speech. PSYCHIATRIC: Appropriate mood and affect; insight and judgment normal. Results - Labs CBC & Chem 7: 09/01/18 09:20 09/02/18 05:40 Laboratory Results - last 24 hr 09/01/18 09/02/18 09:20 05:40 WBC 8.5 RBC 4.56 Hgb 15.0 Hct 43.6 MCV 95.6 MCH 32.9 MCHC 34.4 RDW 15.3 Plt Count 207 MPV 8.2 Neut % (Auto) 71.2 H Lymph % (Auto) 14.1 [place] % (Auto) 11.6 H Eos % (Auto) 2.6 Baso % (Auto) 0.5 Neut # (Auto) 6.0 Lymph # (Auto) 1.2 [place] # (Auto) 1.0 H Eos # (Auto) 0.2 Baso # (Auto) 0.0 WBC Differential . Differential Comment Auto diff final Sodium 130 L Potassium 4.1 Chloride 100 Carbon Dioxide 19.8 L Anion Gap 10 BUN 44 H Creatinine 1.34 H Estimated GFR 52 L Random Glucose 86 Calcium 9.2 Magnesium 2.1 Total Bilirubin 1.6 H AST 141 H ALT 56 Alkaline Phosphatase 409 H Total Protein 6.5 Albumin 2.5 L - Imaging Impressions Bone Scan Nuclear Medicine 09/01/18 00:00 CONCLUSION: 1. Negative exam with no evidence of osseous metastasis. Assessment and Plan - Assessment (1) Weakness Code(s): R53.1 - Weakness Status: Acute (2) Ascites Code(s): R18.8 - Other ascites Status: Acute (3) Liver mass Code(s): R16.0 - Hepatomegaly, not elsewhere classified Status: Acute (4) Acute kidney injury Code(s): N17.9 - Acute kidney failure, unspecified Status: Acute - Plan Patient is a 73-year-old male who has a past medical history of hypertension, hyperlipidemia, BPH, hypothyroidism and liver disease. He presents to the emergency room with a complaint of abdominal distention. Per emergency room physician -outpatient CT AB pelvis done 4 days ago indicated possible mass in the dome of the liver for which malignancy could not be excluded. There was also nodules in the lung bases suspicious for metastatic disease as well as a possible mass in the L1 vertebral body. Ascitis/Liver Mass/ Metastatic hepatoma/ Portal vein clot Elevated alpha-fetoprotein 3906, consistent with hepatocellular carcinoma with metastasis to lung and bone. s/p Paracentesis done in the ED -4 L removed -MRI of abdomen and lumbar spine showed: 2.5 cm mass in the right side of the L1 vertebral body with high signal on the T2-weighted images and subtle decreased signal on the T1-weighted images. There is a smaller 8 to 9 mm similar appearing mass in the right side of the ileum. There is a third subtle high signal mass also noted in the L4 vertebral body. Findings are nonspecific but of concern for marrow replacing process such as a metastasis or myeloma. -CT of the chest: Multiple noncalcified nodules scattered throughout both lungs with the largest located in the left upper lobe medially measuring 18 mm in greatest dimension. Portal venous thrombus -Bone Scan: Negative for osseous metastasis -Oncologist following recommended Hospice care VS Nexavar -GI following-Dr Ibarra -peritoneal cytology sent: results pending -continue Lasix and Spironolactone per GI recommendation Acute kidney injury/hyperkalemia/hyponatremia -s/p IVF hydration -s/p kayexalate -Monitor labs -Hold lisinopril Weakness -Debilitated due to liver disease and chronic EtOH use -PT ordered Hypertension; chronic - Norvasc discontinued, changed to propranolol as non selective BB -decrease propranolol dose due to bradycardia, with hold parameters -Hold lisinopril due to MINNA -monitor BP Hypothyroid; chronic -Restart patient levothyroxine Hyperlipidemia; chronic -Hold simvastatin due to muscle weakness and until liver evaluation is complete DVT prophylaxis: SCDs. Code Status: Full code Discussed Condition With: Patient, nurse, Dr. 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
--- NOTE | 2018-09-02 15:52 | P.PNONC ---
Subjective Interval history: Patient lying in bed, in no acute distress. He has questions about Nexavar, all questions answered to the best my ability. He states he does want to pursue treatment with Nexavar. He reports ambulating in the hallways and tolerating it well. Remains with ascites, currently with saturated abdominal dressing. RN at the bedside changing abdominal dressing. Objective Vital Signs/Intake & Output: Vital Signs 09/01/18 16:00 09/01/18 20:00 09/02/18 00:00 Temperature 98.1 F 97.8 F 97.3 F L Pulse Rate 60 64 59 L Respiratory Rate 20 18 18 Blood Pressure 122/72 108/64 119/76 Pulse Oximetry 95 93 L 93 L 09/02/18 04:00 09/02/18 08:00 09/02/18 12:00 Temperature 97.7 F 97.3 F L 97.2 F L Pulse Rate 57 L 62 55 L Respiratory Rate 18 16 16 Blood Pressure 100/59 L 113/82 105/70 Pulse Oximetry 95 95 95 Intake & Output 09/01/18 09/02/18 09/02/18 18:59 06:59 18:59 Intake Total 480 / 480 Output Total 500 / 500 Balance -20 Weight 82.6 kg Intake: Oral 480 / 480 Output: Urine 500 / 500 Other: # Voids 2 2 Date of Last Bowel Movement 09/01/18 09/01/18 09/02/18 Result Diagrams: 09/01/18 09:20 09/02/18 05:40 Laboratory Results: Laboratory Results - last 24 hr 09/02/18 05:40 Sodium 130 L Potassium 4.1 Chloride 100 Carbon Dioxide 19.8 L Anion Gap 10 BUN 44 H Creatinine 1.34 H Estimated GFR 52 L Random Glucose 86 Calcium 9.2 Magnesium 2.1 Total Bilirubin 1.6 H AST 141 H ALT 56 Alkaline Phosphatase 409 H Total Protein 6.5 Albumin 2.5 L Medications: Active Medications Generic Name Dose Route Start Last Admin Trade Name Freq PRN Reason Stop Dose Admin Furosemide 20 mg 08/31/18 18:00 09/02/18 08:42 Lasix PO 20 mg BID@0900,1800 [facility] Administration Levothyroxine Sodium 25 mcg 08/31/18 06:00 09/02/18 05:40 Synthroid PO 25 mcg DAILY@0600 [facility] Administration Pantoprazole Sodium 20 mg 08/31/18 09:00 09/02/18 08:42 Protonix PO 20 mg DAILY [facility] Administration Senna/Docusate Sodium 1 tab 08/30/18 21:00 09/01/18 09:01 Migdalia-Colace PO 1 tab BID [facility] Administration Sodium Chloride 2 ml 08/30/18 14:23 09/02/18 08:43 Ns Flush IV.FLUSH 2 ml PRN PRN Administration FLUSH AFTER USING IV ACCESS Spironolactone 50 mg 08/31/18 18:00 09/02/18 08:42 Aldactone PO 50 mg BID@0900,1800 [facility] Administration Objective Remarks: GENERAL: Elderly male patient, in no acute distress. SKIN: Warm and dry. HEAD: Normocephalic. EYES: No scleral icterus. No injection or drainage. NECK: Supple, trachea midline. CARDIOVASCULAR: Regular rate and rhythm. RESPIRATORY: Breath sounds equal bilaterally. Non-labored at rest. GASTROINTESTINAL: +Ascites. Abdomen large, non-tender, distended. ABD drsg to RLQ from previous paracentesis saturated with clear fluid. EXTREMITIES: No cyanosis, or edema. MUSCULOSKELETAL: Adequate muscle tone. NEUROLOGICAL: No obvious focal deficit. Awake, alert, and oriented x3. PSYCHIATRIC: Appropriate mood and affect; insight and judgment normal. Assessment/Plan - Plan Mr. Riddle is a pleasant 73-year-old gentleman, who presented to the emergency department with complaints of severe abdominal distention and discomfort. Patient was seen by ranch manager Dr. Jose Soto, who ordered a CT scan of the abdomen and pelvis, which was done at [facility] on 08/26/2018. This revealed cirrhosis of the liver with ascites, a mass in the dome of the liver with multiple lesions in the lower lung field on both sides. There is also a mass noted by L1. Plan: 1. Liver mass with history of cirrhosis, elevated alpha-fetoprotein at 3906. Consistent with hepatocellular carcinoma with metastasis to lung and bone. CT chest revealed multiple noncalcified nodules scattered throughout both lungs with the largest located in the left upper lobe medially measuring 18 mm. Findings were consistent with metastatic disease until proven otherwise. Bone scan was negative for osseous metastasis. 2. Ascites with history of cirrhosis, persists. Status post paracentesis by ER physician with 4 L of fluid drained. Cytology is pending. Drainage continues from paracentesis site. Awaiting possible Tenckhoff drain placement. 3. Questions answered in regards to Nexavar. Patient states he wishes to proceed with treatment with Nexavar. 4. Continue supportive care. - Attending Statement The exam, history, and the medical decision-making described in the above note were completed with the assistance of the mid-level provider. I reviewed and agree with the findings presented. I attest that I had a [id number] encounter with the patient on the same day, and personally performed and documented my assessment and findings in the medical record. C/O leakage at the paracentesis site. Cytology is negative. Dr Ibarra to see if tenchoff tube is appropriate with negative cytology. Pt agrees for nExavar. IF he goes home then make appt to see me on friday at office.
--- NOTE | 2018-09-02 18:30 | P.PNGI ---
Subjective Interval history: Alert NAD s/p paracentesis x 4 liters feeling better has leakage from site right abd ascitic fluid neg cytology with transudative findings Physical Exam Vital signs: Vital Signs 09/01/18 20:00 09/02/18 00:00 09/02/18 04:00 Temperature 97.8 F 97.3 F L 97.7 F Pulse Rate 64 59 L 57 L Respiratory Rate 18 18 18 Blood Pressure 108/64 119/76 100/59 L Pulse Oximetry 93 L 93 L 95 09/02/18 08:00 09/02/18 12:00 09/02/18 16:00 Temperature 97.3 F L 97.2 F L 97.4 F L Pulse Rate 62 55 L 57 L Respiratory Rate 16 16 18 Blood Pressure 113/82 105/70 123/74 Pulse Oximetry 95 95 95 Intake & Output 09/01/18 09/02/18 09/02/18 18:59 06:59 18:59 Intake Total 480 / 480 Output Total 500 / 500 Balance - Weight 82.6 kg Intake: Oral 480 / 480 Output: Urine 500 / 500 Other: # Voids 2 2 Date of Last Bowel Movement 09/01/18 09/01/18 09/02/18 - Constitutional no acute distress - Routine HEENT Exam Head: Present: normocephalic - Routine Respiratory Exam Present: CTA bilaterally - Routine Cardiovascular Exam Present: S1, S2 - Routine Abdominal Exam Comments: distended with ascites nontender bs present - Routine Extremities Exam Comments: no peripheral edema Results - Labs CBC & Chem 7: 09/01/18 09:20 09/02/18 05:40 Laboratory Results - last 24 hr 09/02/18 05:40 Sodium 130 L Potassium 4.1 Chloride 100 Carbon Dioxide 19.8 L Anion Gap 10 BUN 44 H Creatinine 1.34 H Estimated GFR 52 L Random Glucose 86 Calcium 9.2 Magnesium 2.1 Total Bilirubin 1.6 H AST 141 H ALT 56 Alkaline Phosphatase 409 H Total Protein 6.5 Albumin 2.5 L Assessment and Plan (1) Ascites Status: Acute Code(s): R18.8 - Other ascites (2) Liver mass Status: Acute Code(s): R16.0 - Hepatomegaly, not elsewhere classified - Attending Attestation would continue diuretic management and periodic paracentesis...would hold off tankoff cath placement .. if leakage continues may need to contact IR for suture placement at site discussed w pt and his
[2018-09-03 07:28] VITALS: BP 131/84; PULSE 62; RESP 16; TEMP 97.3
[2018-09-03 08:42] LABS: Baso % (Auto) 0.5 % (0.0-2.0); Eos # (Auto) 0.3 th/mm3 (0.0-0.4); Eos % (Auto) 3.2 % (0.0-4.0); Hematocrit 45.2 % (39.0-51.0); Hemoglobin 14.9 gm/dL (13.0-17.0); Lymph # (Auto) 1.4 th/mm3 (1.0-4.8); Lymph % (Auto) 16.2 % (9.0-44.0); Mean Corpuscular Hemoglobin 31.8 pg (27.0-34.0); Mean Corpuscular Volume 96.3 fL (80.0-100.0); Mean Platelet Volume 8.2 fL (7.0-11.0); Mono # (Auto) 1.1 th/mm3 (0.0-0.9); Mono % (Auto) 12.1 % (0.0-8.0); Neut # (Auto) 5.9 th/mm3 (1.8-7.7); Platelet Count 194 th/mm3 (150-450); Red Cell Distribution Width 15.6 % (11.6-17.2); White Blood Count 8.7 th/mm3 (4.0-11.0)
[2018-09-03 09:11] LABS: Alanine Aminotransferase 65 U/L (12-78); Albumin 2.5 g/dL (3.4-5.0); Anion Gap 11 meq/L (5-15); Aspartate Aminotransferase 186 U/L (15-37); Blood Urea Nitrogen 45 mg/dL (7-18); Calcium 9.2 mg/dL (8.5-10.1); Carbon Dioxide 19.7 meq/L (21.0-32.0); Chloride 100 meq/L (98-107); Glomerular Filtration Rate 51 mL/min (>89); Glucose,Random 77 mg/dL (74-106); Potassium 4.3 meq/L (3.5-5.1); Sodium 131 meq/L (136-145)
[2018-09-03 09:14] LABS: Alkaline Phosphatase 486 U/L (45-117); Total Protein 6.8 g/dL (6.4-8.2)
[2018-09-03] MEDS: Pantoprazole Sodium 20 MG DR Tablet PO SCH (09:14)
[2018-09-03] MEDS: Spironolactone 50 MG Tablet PO SCH (09:15)
[2018-09-03] MEDS: Propranolol 10 MG Tablet PO SCH (09:15)
[2018-09-03] MEDS: Furosemide 20 MG Tablet PO SCH (09:16)
--- NOTE | 2018-09-03 09:59 | P.DS ---
Date of admission: 08/30/18 18:35 Primary care physician: Lynn Goff MD Attending physician on discharge: Chadd Maciel Anticipated date of discharge: 09/03/18 Brief History from admission: Patient is a 73-year-old male who has a past medical history of hypertension, hyperlipidemia, BPH, hypothyroidism and liver disease. He presents to the emergency room with a complaint of abdominal distention. His history is somewhat vague however he does say that he has recently seen an oncologist, Dr. Garcia, who did a CT last week in order to evaluate his liver for a possible lesion and cirrhosis. Patient also reports that he was told his blood work was showing high calcium and liver problems. He does endorse significant EtOH use in the past. He quit smoking in his 30s. Denies any history of liver disease such as hepatitis or any previous paracentesis. He does report having had an EGD and colonoscopy however it is unclear exactly when this was done. 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 Patient awake and oriented x3 sitting in his bed denies any pain or discomfort. Discussed discharge planning to the patient patient plan to follow- up with oncology for Nexavar treatment will schedule to see oncology on Friday. Patient decided not to have a closure on the paracentesis site that is leaking he said he will just let it bleed for now and will decide later if needed closure. Patient stated he needs a wheelchair and a walker to go home because he had many dogs and he is afraid of falling, states that he was fallen before. Discussed home health care for home. Patient denies any headache or dizziness, denies any pain chest pain, denies any abdominal pain, nausea, or vomiting. Patient denies any diarrhea or constipation. Patient denies any fever or chills DS: Diagnosis - Discharge Diagnosis (1) Weakness Status: Acute (2) Ascites Status: Acute (3) Liver mass Status: Acute (4) Acute kidney injury Status: Acute DS: Summary Hospital Course: Patient is a 73-year-old male who has a past medical history of hypertension, hyperlipidemia, BPH, hypothyroidism and liver disease. He presents to the emergency room with a complaint of abdominal distention. His history is somewhat vague however he does say that he has recently seen an oncologist, Dr. Garcia, who did a CT last week in order to evaluate his liver for a possible lesion and cirrhosis. Patient also reports that he was told his blood work was showing high calcium and liver problems. Patient undergone paracentesis with 4 L removed in the ED. MRI of the abdomen and lumbar spine showed 2.5 mass in the right side of L1, L4 vertebral body and and mass in the ileum. Bone scan shows negative for osseous metastasis. Peritoneal cytology is negative. CT of the chest revealed multiple noncalcified nodules scattered throughout both lungs with the largest located in the left upper lobe measuring 18 mm which is consistent with metastatic disease. Patient will follow up with oncology on Friday for the agreement for the treatment for Nexavar. Patient will follow up with GI and plan for a periodic paracentesis as needed and to continue diuretic management. If leaking on the right lower abdominal paracentesis site continues then it might need a suture placement by the interventional radiologist. Patient does not want to get it down right now he stated he wanted to wait. - Time Spent with Patient Total time spent providing and/or coordinating discharge services: Greater than 30 minutes - Quality: VTE Deep Vein Thrombosis/Pulmonary Embolism Present on Admission: No Exam Vital signs: Vital Signs 09/02/18 12:00 09/02/18 16:00 09/02/18 20:00 Temperature 97.2 F L 97.4 F L Pulse Rate 55 L 57 L 65 Respiratory Rate 16 18 Blood Pressure 105/70 123/74 Pulse Oximetry 95 95 09/02/18 22:00 09/03/18 00:00 09/03/18 04:00 Temperature 97.8 F 97.5 F L 97.8 F Pulse Rate 59 L 55 L 59 L Respiratory Rate 18 18 18 Blood Pressure 120/71 114/62 128/78 Pulse Oximetry 95 95 95 09/03/18 07:26 Temperature 97.3 F L Pulse Rate 62 Respiratory Rate 16 Blood Pressure 131/84 Pulse Oximetry 95 Intake & Output 09/02/18 09/03/18 09/03/18 18:59 06:59 18:59 Intake Total 240 / 240 Output Total 150 / 150 Balance 90 / 90 Weight 84 kg Intake: Oral 240 / 240 Output: Urine 150 / 150 Other: # Voids 2 Date of Last Bowel Movement 09/02/18 09/02/18 # Bowel Movements 2 Narrative: GENERAL: Well-developed, well-nourished, alert and oriented x3, with no apparent distress SKIN: Warm and dry. Right lower abdominal puncture site draining serosanguineous, dressing soaked HEAD: Atraumatic. Normocephalic. EYES: Pupils equal and round. No scleral icterus. No injection or drainage. ENT: No nasal bleeding or discharge. Mucous membranes pink and moist. NECK: Trachea midline. No JVD. CARDIOVASCULAR: Regular rate and rhythm. RESPIRATORY: No accessory muscle use. Clear to auscultation. Breath sounds equal bilaterally. GASTROINTESTINAL: Abdomen distended, non-tender. Bowel sounds present in all 4 quadrants. MUSCULOSKELETAL: Extremities without clubbing, cyanosis, or edema. No obvious deformities. NEUROLOGICAL: Awake and alert. No obvious cranial nerve deficits. Motor grossly within normal limits. Moving all 4 extremities. Normal speech. PSYCHIATRIC: Appropriate mood and affect; insight and judgment normal. Results Procedures completed during hospitalization: Paracentesis Completed studies during hospitalization: Chest CT Bone scan Lumbar spine MRI Abdomen MRI Labs on day of discharge: Labs from last 24 hours 09/03/18 09/03/18 06:27 06:27 WBC 8.7 RBC 4.70 Hgb 14.9 Hct 45.2 MCV 96.3 MCH 31.8 MCHC 33.0 RDW 15.6 Plt Count 194 MPV 8.2 Neut % (Auto) 68.0 Lymph % (Auto) 16.2 [place] % (Auto) 12.1 H Eos % (Auto) 3.2 Baso % (Auto) 0.5 Neut # (Auto) 5.9 Lymph # (Auto) 1.4 [place] # (Auto) 1.1 H Eos # (Auto) 0.3 Baso # (Auto) 0.0 WBC Differential . Differential Comment Auto diff final Sodium 131 L Potassium 4.3 Chloride 100 Carbon Dioxide 19.7 L Anion Gap 11 BUN 45 H Creatinine 1.37 H Estimated GFR 51 L Random Glucose 77 Calcium 9.2 Total Bilirubin 1.8 H AST 186 H ALT 65 Alkaline Phosphatase 486 H Total Protein 6.8 Albumin 2.5 L - Impressions ITS Impressions Abdomen MRI 08/30/18 00:00 CONCLUSION: 1. Evidence of central portal venous thrombosis. 2. Noncontrast examination demonstrating a cirrhotic liver with inhomogeneity and abnormal signal intensity in the right lobe corresponding to the areas of low density seen on CT. The finding is nonspecific but may be related to the portal venous thrombosis. A contrast-enhanced study would have increased sensitivity to exclude the possibility of a true mass. 3. Moderate amount of ascitic fluid. 4. Small right pleural effusion. 5. High signal mass in the right-sided the L1 body on the T2-weighted images. Please see lumbar spine MRI for further evaluation. Lumbar Spine MRI 08/30/18 00:00 CONCLUSION: 1. 2.5 cm mass in the right side of the L1 vertebral body with high signal on the T2-weighted images and subtle decreased signal on the T1-weighted images. There is a smaller 8 to 9 mm similar appearing mass in the right side of the ileum. There is a third subtle high signal mass also noted in the L4 vertebral body. Findings are nonspecific but of concern for marrow replacing process such as a metastasis or myeloma. 2. Mild degenerative disc changes with disc bulges and no focal protrusion. Chest X-Ray 08/30/18 14:23 CONCLUSION: No acute cardiopulmonary findings. Bone Scan Nuclear Medicine 09/01/18 00:00 CONCLUSION: 1. Negative exam with no evidence of osseous metastasis. Chest CT 09/01/18 00:00 CONCLUSION: 1. Multiple noncalcified nodules scattered throughout both lungs with the largest located in the left upper lobe medially measuring 18 mm in greatest dimension. The findings are consistent with metastatic disease until proven otherwise. 2. Portal venous thrombus. 3. Extensive ascites within the upper abdomen. 4. Heterogeneous liver with questionable focal dilatation of the intrahepatic biliary system in the right lobe. 5. Mild dilatation of the ascending thoracic aorta measuring 4 cm in greatest dimension. 6. Coronary artery calcification. 7. Scattered fibrotic scarring within the lungs. 8. Mild degenerative changes and scoliosis of the thoracic spine. Discharge Plan - Discharge Disposition Patient Disposition: /Home Health Service - Discharge Condition Condition: Stable - Discharge Order Discharge Orders: Discharge Order (Routine); Ordered 09/03/18 Ordered By: Cammy Patel [facility] Clear for Discharge (Routine); Ordered 09/03/18 Ordered By: Cammy Patel [facility] Clear for Discharge (Routine); Ordered 09/03/18 Ordered By: Cammy Saleh - Discharge Details Anticipated Discharge Date: 09/03/18 - Physicians Team Primary Care Provider: Lynn Goff Attending Provider: Chadd Maciel Other Providers: Olivier Ibarra MD ; Slade June ; Jason Dougherty MD
--- NOTE | 2018-09-03 10:48 | P.DCO ---
- Diagnosis (1) Ascites Status: Acute (2) Liver mass Status: Acute - Home Health Nursing Order: Medical education, Signs/symptoms of disease process, Medication education-adverse effect - Case Management Consult Yes - Certification I have seen patient Kayden Riddle on 09/03/18. My clinical findings support the need for the requested home health care services because: Limited mobility due to disease progression, Deconditioned with increased weakness I certify that my clinical findings support that this patient is homebound because: Unsteady gait/balance, Unsafe to leave home unassisted (Ascites/Liver mass with mets to LUngs)
== END 2018-09-03 12:24 | disposition home health service (06) ==
LOC: NEPC 13:15 → NEDA 13:15 → N04 19:15
PROVIDERS: ADMIT Internal Medicine; ATTEND Internal Medicine
DX: R18.8 Other ascites; E87.1 Hypo-osmolality and hyponatremia; E78.5 Hyperlipidemia, unspecified; I10 Essential (primary) hypertension; C22.0 Liver cell carcinoma; N40.0 Benign prostatic hyperplasia without lower urinary tract symptoms; E78.00 Pure hypercholesterolemia, unspecified; Z87.891 Personal history of nicotine dependence; C79.51 Secondary malignant neoplasm of bone; E87.5 Hyperkalemia; E03.9 Hypothyroidism, unspecified; Z96.651 Presence of right artificial knee joint; C78.00 Secondary malignant neoplasm of unspecified lung; N17.9 Acute kidney failure, unspecified